=== PATIENT | female | born 1950 | race Caucasian/White ===

== ENCOUNTER 2022-01-09 12:07 | Inpatient (IN) | payer MEDICARE, OTHER ==
[2022-01-09] MEDS ORDERED: IPRATROPIUM-ALBUTEROL 3 ML NEB INHALATION STA (12:31)
[2022-01-09] MEDS ORDERED: DEXAMETHASONE SOD PHOSPHATE 10 MG/ML 1 ML VIAL IV STA (12:57)
[2022-01-09 13:00] LABS: ABG Base Excess 6.1 mmol/L; ABG HCO3 31 mmol/L (21-25); ABG Oxygen Saturation 98.2 % (94-97); ABG PCO2 48 mmHg (35-45); ABG PH 7.41 (7.35-7.45); ABG PO2 88 mmHg (83-108); ABG TCO2 32 mmol/L (19-24); Allen Test Performed? Yes
--- NOTE | 2022-01-09 13:00 | ED ---
General Adult HPI - General Chief complaint: Shortness of Breath Stated complaint: Low BP and O2 Time Seen by Provider: 01/09/22 12:18 Source: patient Mode of arrival: ambulatory - History of Present Illness Initial comments: Dictation was produced using [employer] dictation software. please excuse any grammatical, word or spelling errors. Chief Complaint: 71-year-old female presents to the emergency department for dyspnea History of Present Illness: Is a 71-year-old female she is a regular tobacco user. Patient does not have established care with primary care doctor. She rests emergency department sister for shortness of breath and dyspnea. Patient has not been feeling well for the last 1-2 weeks. She called her sister who then brought her to an urgent care. They found her to be hypoxic and told her to come to the emergency room. Patient states she's been short of breath. She has had a baseline cough is nonproductive of sputum. Denies any chest pain or chest pressure. Patient does complain of swelling to the bilateral lower extremities. The ROS documented in this emergency department record has been reviewed and confirmed by me. Those systems with pertinent positive or negative responses have been documented in the HPI. All other systems are other negative and/or noncontributory. PHYSICAL EXAM: General Impression: Alert and oriented x3, mild respiratory distress HEENT: Normocephalic atraumatic, extra-ocular movements intact, pupils equal and reactive to light bilaterally, mucous membranes moist. Cardiovascular: Heart regular rate and rhythm Chest: Retractions, diffuse lung wheezing Abdomen: abdomen soft, non-tender, non-distended, no organomegaly Musculoskeletal: Pulses present and equal in all extremities, no peripheral edema Motor: no focal deficits noted Neurological: CN II-XII grossly intact, no focal motor or sensory deficits noted Skin: Intact with no visualized rashes Psych: Normal affect and mood ED course: 71-year-old female presents emergency department for dyspnea. Vital signs upon arrival shows heart rate 111, 72% on room air, blood pressure 96/59. Patient given nonrebreather with oxygenation improved into the 90s. Bony care bedside ultrasound does not show any curly B-lines. Suspect that patient's symptoms are secondary to COPD exacerbation. Patient given DuoNeb and steroid treatment. Patient reevaluated bedside at 2:00 and found him in stable medical condition. Laboratory evaluation obtained showing erythrocytosis secondary to COPD. No leukocytosis. Arterial blood gas shows pH of 7.41, pCO2 48 oxygen saturation of 88 on 45% FiO2 with a bicarb of 31. This is after breathing treatment. She is transitioned from nonrebreather to 4 L nasal cannula. Metabolic panel is unremarkable. Cardiac enzymes negative. Chest x-ray shows no acute processes. Patient be admitted for hypoxic respiratory failure and bronchospastic event. EKG interpretation: Ventricular rate 93, sinus rhythm,. Interval 160, care 72, QTc 382. No [place] prolongation, no QTC prolongation, no ST or T-wave changes noted. Overall, this EKG is unremarkable - Related Data Allergies Allergy/AdvReac Type Severity Reaction Status Date / Time No Known Allergies Allergy Verified 01/09/22 12:13 Review of Systems ROS Statement: Those systems with pertinent positive or pertinent negative responses have been documented in the HPI. ROS Other: All systems not noted in ROS Statement are negative. Past Medical History Additional Past Medical History / Comment(s): pt hasn't seen a doctor in year History of Any Multi-Drug Resistant Organisms: None Reported Past Surgical History: No Surgical Hx Reported Past Psychological History: No Psychological Hx Reported Smoking Status: Current every day smoker Past Alcohol Use History: None Reported Past Drug Use History: None Reported, Marijuana Course Vital Signs 01/09/22 01/09/22 01/09/22 12:09 12:35 12:40 Temperature 98.6 F Pulse Rate 111 H 92 95 Respiratory 20 27 H 21 Rate Blood Pressure 96/59 122/76 O2 Sat by Pulse 72 L 99 Oximetry 01/09/22 12:45 Temperature Pulse Rate 95 Respiratory 28 H Rate Blood Pressure O2 Sat by Pulse Oximetry Medical Decision Making - Lab Data Result diagrams: 01/09/22 12:59 01/09/22 12:59 Lab Results 01/09/22 01/09/22 01/09/22 Range/Units 12:53 12:59 12:59 WBC 5.8 (3.8-10.6) k/uL RBC 6.67 H (3.80-5.40) m/uL Hgb 21.1 H* (11.4-16.0) gm/dL Hct 69.6 H* (34.0-46.0) % MCV 104.4 H (80.0-100.0) fL MCH 31.6 (25.0-35.0) pg MCHC 30.3 L (31.0-37.0) g/dL RDW 14.4 (11.5-15.5) % Plt Count 189 (150-450) k/uL MPV 7.5 Hypochromasia Marked Macrocytosis Moderate Sample Site Right Radial ABG pH 7.41 (7.35-7.45) ABG pCO2 48 H (35-45) mmHg ABG pO2 88 (83-108) mmHg ABG HCO3 31 H (21-25) mmol/L ABG Total CO2 32 H (19-24) mmol/L ABG O2 Saturation 98.2 H (94-97) % ABG Base Excess 6.1 mmol/L Jerrod Test Yes FiO2 45 % Sodium 136 L (137-145) mmol/L Potassium 5.4 H (3.5-5.1) mmol/L Chloride 96 L (98-107) mmol/L Carbon Dioxide 29 (22-30) mmol/L Anion Gap 11 mmol/L BUN 23 H (7-17) mg/dL Creatinine 0.99 (0.52-1.04) mg/dL Est GFR (CKD-EPI)AfAm 67 (>60 ml/min/1.73 sqM) Est GFR (CKD-EPI)NonAf 58 (>60 ml/min/1.73 sqM) Glucose 111 H (74-99) mg/dL Plasma Lactic Acid Jan (0.7-2.0) mmol/L Calcium 8.9 (8.4-10.2) mg/dL Magnesium 1.8 (1.6-2.3) mg/dL Total Bilirubin 1.4 H (0.2-1.3) mg/dL AST 30 (14-36) U/L ALT 17 (4-34) U/L Alkaline Phosphatase 98 (38-126) U/L Troponin I (0.000-0.034) ng/mL NT-Pro-B Natriuret Pep pg/mL Total Protein 7.0 (6.3-8.2) g/dL Albumin 4.2 (3.5-5.0) g/dL 01/09/22 01/09/22 01/09/22 Range/Units 12:59 12:59 12:59 WBC (3.8-10.6) k/uL RBC (3.80-5.40) m/uL Hgb (11.4-16.0) gm/dL Hct (34.0-46.0) % MCV (80.0-100.0) fL MCH (25.0-35.0) pg MCHC (31.0-37.0) g/dL RDW (11.5-15.5) % Plt Count (150-450) k/uL MPV Hypochromasia Macrocytosis Sample Site ABG pH (7.35-7.45) ABG pCO2 (35-45) mmHg ABG pO2 (83-108) mmHg ABG HCO3 (21-25) mmol/L ABG Total CO2 (19-24) mmol/L ABG O2 Saturation (94-97) % ABG Base Excess mmol/L Jerrod Test FiO2 % Sodium (137-145) mmol/L Potassium (3.5-5.1) mmol/L Chloride (98-107) mmol/L Carbon Dioxide (22-30) mmol/L Anion Gap mmol/L BUN (7-17) mg/dL Creatinine (0.52-1.04) mg/dL Est GFR (CKD-EPI)AfAm (>60 ml/min/1.73 sqM) Est GFR (CKD-EPI)NonAf (>60 ml/min/1.73 sqM) Glucose (74-99) mg/dL Plasma Lactic Acid Jan 1.4 (0.7-2.0) mmol/L Calcium (8.4-10.2) mg/dL Magnesium (1.6-2.3) mg/dL Total Bilirubin (0.2-1.3) mg/dL AST (14-36) U/L ALT (4-34) U/L Alkaline Phosphatase (38-126) U/L Troponin I <0.012 (0.000-0.034) ng/mL NT-Pro-B Natriuret Pep 5400 pg/mL Total Protein (6.3-8.2) g/dL Albumin (3.5-5.0) g/dL Critical Care Time Critical Care Time: Yes Total Critical Care Time: 33 Disposition Clinical Impression: Hypoxia, COPD (chronic obstructive pulmonary disease) Disposition: ADMITTED IP TO THIS [facility] Condition: Serious Referrals: None,Stated [Primary Care Provider] - 1-2 days Decision Time: 14:01
[2022-01-09 13:11] LABS: Basophils # (A) 0.1 k/uL (0-0.2); Basophils % (A) 1 %; Eosinophils % (A) 1 %; Hypochromasia Marked; Lymphocytes # (A) 1.1 k/uL (1.0-4.8); Lymphocytes % (A) 20 %; MCH 31.6 pg (25.0-35.0); MCHC 30.3 g/dL (31.0-37.0); MCV 104.4 fL (80.0-100.0); Macrocytosis Moderate; Mean Platelet Volume 7.5; Monocytes # (A) 0.6 k/uL (0-1.0); Monocytes % (A) 10 %; Neutrophils # (A) 3.8 k/uL (1.3-7.7); Neutrophils % (A) 66 %; Platelet Count 189 k/uL (150-450); RBC 6.67 m/uL (3.80-5.40); RDW 14.4 % (11.5-15.5); WBC 5.8 k/uL (3.8-10.6)
--- NOTE | 2022-01-09 13:14 | XR ---
EXAMINATION TYPE: XR chest 1V portable DATE OF EXAM: 01/09/2022 COMPARISON: NONE HISTORY: Hypoxia and dyspnea. TECHNIQUE: Single AP portable frontal upright view of the chest is obtained. FINDINGS: There is some chronic parenchymal changes thought present bilaterally with increased inter stitial prominence. Tiny left pleural effusion suspected. Patchy bibasilar opacities favor atelectasi s. The cardiac silhouette size is upper limits of normal. The osseous structures are somewhat demin eralized. IMPRESSION: Tiny left pleural effusion. Background chronic parenchymal changes are felt present. Pat gracy bibasilar atelectasis. No definitive suspicious focal infiltrate.
[2022-01-09 13:26] LABS: Albumin 4.2 g/dL (3.5-5.0); Calcium 8.9 mg/dL (8.4-10.2); Total Bilirubin 1.4 mg/dL (0.2-1.3)
[2022-01-09 13:29] LABS: HGB 21.1 gm/dL (11.4-16.0)
[2022-01-09 13:30] LABS: HCT 69.6 % (34.0-46.0)
[2022-01-09 13:36] LABS: Potassium 5.4 mmol/L (3.5-5.1)
[2022-01-09 13:37] LABS: Magnesium 1.8 mg/dL (1.6-2.3)
[2022-01-09] MEDS ORDERED: NALOXONE 0.4 MG/ML 1 ML VIAL IV PRN (14:01)
[2022-01-09] MEDS ORDERED: ACETAMINOPHEN TAB 325 MG TAB PO PRN (14:01)
[2022-01-09] MEDS ORDERED: AZITHROMYCIN 500 MG in SODIUM CHLORIDE 0.9% 250 ML IVPB STA (14:02)
[2022-01-09] MEDS: SODIUM CHLORIDE 0.9% 1,000 ML IV SCH (14:21)
[2022-01-09 14:36] LABS: Partial Thromboplastin Time 22.2 sec (22.0-30.0); Prothrombin Time 11.3 sec (9.0-12.0)
--- NOTE | 2022-01-09 15:59 | P.CNPUL ---
History of Present Illness Consult date: 01/09/22 Requesting physician: Fausto Veliz Reason for consult: COPD Chief complaint: Shortness of breath cough and wheezing History of present illness: This is a 71-year-old female who is 100 pack year smoker, never seen a integrated logistics support manager in the past, never been on any inhalers or office for her pulmona ry symptoms. Patient has chronic and intermittent episodes of shortness of breath cough and wheezing. In the last 2 months, her shortness of breath and her other pulmonary symptoms have become more pronounced. Patient presented to the ER with classic symptoms of COPD exacerbation mostly cough which is productive with whitish phlegm, no fever no chills, she has no hemoptysis, she has mostly shortness of breath and intermittent wheezing. Patient is not O2 dependent not prednisone dependent and never been seen by a physician except years ago she had a right ankle injury otherwise no other issues. Patient lived in [place] for 15 years, however in the last 2 years, patient moved back to [facility] where she was born and raised. Lives in [facility] facility, patient lives on her own, continues to smoke on the average of one or 2 packs per day. Chest x-ray on admission showed patchy bibasilar atelectasis and no evidence of infiltrate. patient was noted to be hypoxic on her initial presentation, treated with bronchodilators, admitted and this consult was initiated. WBC count is 5.8 hemoglobin 21.1 I d-dimer is 1.47, pO2 is 88 pCO2 48 pH of 7.41 and this is a 45% FiO2. Basic metabolic profile is relatively normal and renal profile is normal Review of Systems Constitutional: Negative HEENT: Negative Cardiac: Negative Pulmonary: Cough wheezing shortness of breath GI: Negative Genitourinary: Negative Musculoskeletal: Chronic right ankle swelling and intermittent pain Psychiatric: History of depression Neurologic: Negative Hematologic: Suspect erythrocytosis secondary to COPD and chronic hypoxic respiratory failure Endocrine: Negative Skin: Negative Past Medical History Additional Past Medical History / Comment(s): pt hasn't seen a doctor in year History of Any Multi-Drug Resistant Organisms: None Reported Past Surgical History: No Surgical Hx Reported Past Psychological History: No Psychological Hx Reported Smoking Status: Current every day smoker Past Alcohol Use History: None Reported Past Drug Use History: None Reported, Marijuana Medications and Allergies Home Medications Medication Instructions Recorded Confirmed Type No Known Home Medications 01/09/22 01/09/22 History Allergies Allergy/AdvReac Type Severity Reaction Status Date / Time No Known Allergies Allergy Verified 01/09/22 14:40 Physical Exam Vitals: Vital Signs Temp Pulse Resp BP Pulse Ox 01/09/22 14:18 106 H 22 121/78 94 L 01/09/22 12:45 95 28 H 01/09/22 12:40 95 21 122/76 99 01/09/22 12:35 92 27 H 01/09/22 12:09 98.6 F 111 H 20 96/59 72 L Intake and Output 01/09/22 01/09/22 01/09/22 06:59 14:59 22:59 Other: Weight 60.781 kg Physical Exam: Revealed 71-year-old female in no distress on 4 L nasal cannula Head: Atraumatic, normocephalic HEENT:[Neck is supple.] [No neck masses.] [No thyromegaly.] [No JVD.] Chest: [Symmetrical chest expansion scattered rhonchi and wheezes Cardiac Exam: [Normal S1 and S2, no S3 gallop, no murmur.] Abdomen: [Soft, nontender, no megaly, no rebound, no guarding, normal bowel sounds.] Extremities: [No clubbing, no edema, no cyanosis.] Neurological Exam: [No focal neurologic deficit.] Alert and oriented 3 Psychiatric: Depressed mood, normal affect, and normal mental status examination. Skin: No rashes Musculoskeletal: No deformities and no limitation in range of motion Results - Laboratory Findings CBC and BMP: 01/09/22 12:59 01/09/22 12:59 ABG ABG pH 7.41 (7.35-7.45) 01/09/22 12:53 ABG pCO2 48 mmHg (35-45) H 01/09/22 12:53 ABG pO2 88 mmHg (83-108) 01/09/22 12:53 ABG O2 Saturation 98.2 % (94-97) H 01/09/22 12:53 PT/INR, D-dimer PT 11.3 sec (9.0-12.0) 01/09/22 13:54 INR 1.0 (<1.2) 01/09/22 13:54 D-Dimer 1.47 mg/L FEU (<0.60) H 01/09/22 13:54 Abnormal lab findings: Abnormal Labs 01/09/22 01/09/22 01/09/22 12:53 12:59 12:59 RBC 6.67 H Hgb 21.1 H* Hct 69.6 H* MCV 104.4 H MCHC 30.3 L D-Dimer ABG pCO2 48 H ABG HCO3 31 H ABG Total CO2 32 H ABG O2 Saturation 98.2 H Sodium 136 L Potassium 5.4 H Chloride 96 L BUN 23 H Glucose 111 H Total Bilirubin 1.4 H 01/09/22 13:54 RBC Hgb Hct MCV MCHC D-Dimer 1.47 H ABG pCO2 ABG HCO3 ABG Total CO2 ABG O2 Saturation Sodium Potassium Chloride BUN Glucose Total Bilirubin - Diagnostic Findings Chest x-ray: image reviewed (As noted in HPI) Assessment and Plan Assessment: Impression: Acute hypoxic respiratory failure secondary to acute exacerbation of COPD Suspect polycythemia vera secondary to chronic hypoxic respiratory failure and underlying COPD\ Acute tracheobronchitis Tobacco dependence syndrome Chronic osteoarthritis of right ankle secondary to trauma/fall. Recommendation: Admit patient to regular medical floor Started on bronchodilators. Titrate oxygen accordingly patient may even require to go home on oxygen Start methylprednisolone GI and DVT prophylaxis Counseled regarding smoking cessation Antibiotics for tracheobronchitis/doxycycline Will continue to follow Time with Patient: Greater than 30
[2022-01-09] MEDS: methylPREDNISolone SOD SUCCI 40 MG/ML 1 ML VIAL IV SCH ×2 (18:10→23:57)
[2022-01-09] MEDS: SYMBICORT 160-4.5 MCG INHALER INHALATION SCH (20:00)
[2022-01-09] MEDS ORDERED: methylPREDNISolone SOD SUCCI 40 MG/ML 1 ML VIAL IV SCH (21:00)
[2022-01-09] MEDS: DOXYCYCLINE 100 MG CAP PO SCH (22:24)
[2022-01-09] MEDS: MELATONIN 3 MG TABLET PO SCH (22:43)
[2022-01-10] MEDS: methylPREDNISolone SOD SUCCI 40 MG/ML 1 ML VIAL IV SCH ×4 (06:16→23:16)
[2022-01-10] MEDS: SYMBICORT 160-4.5 MCG INHALER INHALATION SCH ×2 (08:10→19:36)
--- NOTE | 2022-01-10 08:10 | P.HPIM ---
History of Present Illness H&P Date: 01/09/22 Chief Complaint: Shortness of breath 71-year-old female she is a regular tobacco user. Patient does not have established care with primary care doctor. She rests emergency department sister for shortness of breath and dyspnea. Patient has not been feeling well for the last 1-2 weeks. She called her sister who then brought her to an urgent care. They found her to be hypoxic and told her to come to the emergency room. Patient states she's been short of breath. She has had a baseline cough is nonproductive of sputum. Denies any chest pain or chest pressure. Patient does complain of swelling to the bilateral lower extremities. Patient lived in [place] for 15 years, however in the last 2 years, patient moved back to [place] where she was born and raised. Lives in [facility], patient lives on her own, continues to smoke on the average of one or 2 packs per day. Chest x-ray on admission showed patchy bibasilar atelectasis and no evidence of infiltrate. patient was noted to be hypoxic on her initial presentation, treated with bronchodilators, admitted and this consult was initiated. WBC count is 5.8 hemoglobin 21.1; Chemical profile reveals sodium 136, potassium 5.4, BUN/creatinine of 23/0.99 and blood glucose of 111; d-dimer is 1.47, pO2 is 88 pCO2 48 pH of 7.41 and this is a 45% FiO2. Review of Systems REVIEW OF SYSTEMS: CONSTITUTIONAL: No fever, no malaise, no fatigue. HEENT: No recent visual problems or hearing problems. Denied any sore throat. CARDIOVASCULAR: No chest pain, orthopnea, PND, no palpitations, no syncope. PULMONARY: No shortness of breath, no cough, no hemoptysis. GASTROINTESTINAL: No diarrhea, no nausea, no vomiting, no abdominal pain. NEUROLOGICAL: No headaches, no weakness, no numbness. HEMATOLOGICAL: Denies any bleeding or petechiae. GENITOURINARY: Denies any burning micturition, frequency, or urgency. MUSCULOSKELETAL/RHEUMATOLOGICAL: Denies any joint pain, swelling, or any muscle pain. ENDOCRINE: Denies any polyuria or polydipsia. The rest of the 14-point review of systems is negative. Past Medical History Additional Past Medical History / Comment(s): pt hasn't seen a doctor in year History of Any Multi-Drug Resistant Organisms: None Reported Past Surgical History: No Surgical Hx Reported Past Psychological History: No Psychological Hx Reported Smoking Status: Current every day smoker Past Alcohol Use History: None Reported Past Drug Use History: None Reported, Marijuana Medications and Allergies Home Medications Medication Instructions Recorded Confirmed Type No Known Home Medications 01/09/22 01/09/22 History Allergies Allergy/AdvReac Type Severity Reaction Status Date / Time No Known Allergies Allergy Verified 01/09/22 14:40 Physical Exam Vitals: Vital Signs Temp Pulse Resp BP Pulse Ox 01/09/22 14:18 106 H 22 121/78 94 L 01/09/22 12:45 95 28 H 01/09/22 12:40 95 21 122/76 99 01/09/22 12:35 92 27 H 01/09/22 12:09 98.6 F 111 H 20 96/59 72 L Intake and Output 01/09/22 01/09/22 01/09/22 06:59 14:59 22:59 Other: Weight 60.781 kg Head: Atraumatic, normocephalic HEENT:[Neck is supple.] [No neck masses.] [No thyromegaly.] [No JVD.] Chest: [Symmetrical chest expansion scattered rhonchi and wheezes Cardiac Exam: [Normal S1 and S2, no S3 gallop, no murmur.] Abdomen: [Soft, nontender, no megaly, no rebound, no guarding, normal bowel sounds.] Extremities: [No clubbing, no edema, no cyanosis.] Neurological Exam: [No focal neurologic deficit.] Alert and oriented 3 Psychiatric: Depressed mood, normal affect, and normal mental status examination. Skin: No rashes Musculoskeletal: No deformities and no limitation in range of motion Results CBC & Chem 7: 01/09/22 12:59 01/09/22 12:59 Labs: Abnormal Lab Results - Last 24 Hours (Table) 01/09/22 01/09/22 01/09/22 Range/Units 12:53 12:59 12:59 RBC 6.67 H (3.80-5.40) m/uL Hgb 21.1 H* (11.4-16.0) gm/dL Hct 69.6 H* (34.0-46.0) % MCV 104.4 H (80.0-100.0) fL MCHC 30.3 L (31.0-37.0) g/dL D-Dimer (<0.60) mg/L FEU ABG pCO2 48 H (35-45) mmHg ABG HCO3 31 H (21-25) mmol/L ABG Total CO2 32 H (19-24) mmol/L ABG O2 Saturation 98.2 H (94-97) % Sodium 136 L (137-145) mmol/L Potassium 5.4 H (3.5-5.1) mmol/L Chloride 96 L (98-107) mmol/L BUN 23 H (7-17) mg/dL Glucose 111 H (74-99) mg/dL Total Bilirubin 1.4 H (0.2-1.3) mg/dL 01/09/22 Range/Units 13:54 RBC (3.80-5.40) m/uL Hgb (11.4-16.0) gm/dL Hct (34.0-46.0) % MCV (80.0-100.0) fL MCHC (31.0-37.0) g/dL D-Dimer 1.47 H (<0.60) mg/L FEU ABG pCO2 (35-45) mmHg ABG HCO3 (21-25) mmol/L ABG Total CO2 (19-24) mmol/L ABG O2 Saturation (94-97) % Sodium (137-145) mmol/L Potassium (3.5-5.1) mmol/L Chloride (98-107) mmol/L BUN (7-17) mg/dL Glucose (74-99) mg/dL Total Bilirubin (0.2-1.3) mg/dL Assessment and Plan Assessment: 1. Acute hypoxic respiratory failure - Patient is currently on O2 at 4 L per nasal cannula; we will titrate/wean to keep O2 saturation above 92% - Need for home O2 will be determined once stable and at time of discharge 2. Acute exacerbation COPD; patient is placed on Solu-Medrol 40 mg IV every 6 hours; bronchodilator nebulizer treatments 4 times a day and when necessary - Patient has been placed on Symbicort inhaler 1604.5 MCG 2 puffs twice a day 3. Acute tracheobronchitis; doxycycline 100 mg PO every 12 hours; monitor CBC, CRP and pro-calcitonin 4. Polycythemia vera; likely related to COPD/chronic hypoxic respiratory failure 5. Chronic tobacco use; counseling done on need for smoking cessation; patient doesn't seem to be too motivated 6. Osteoarthritis; likely acute exacerbation right ankle DVT prophylaxis; SCDs/ subcu Lovenox CODE STATUS; full code
[2022-01-10] MEDS: ENOXAPARIN 40 MG/0.4 ML SYRINGE SQ SCH (08:23)
[2022-01-10] MEDS: DOXYCYCLINE 100 MG CAP PO SCH ×2 (08:23→19:57)
[2022-01-10] MEDS: FAMOTIDINE 20 MG TAB PO SCH (08:23)
[2022-01-10] MEDS ORDERED: AZITHROMYCIN 250 MG TAB PO SCH (09:00)
[2022-01-10] MEDS ORDERED: IPRATROPIUM-ALBUTEROL 3 ML NEB INHALATION PRN (09:12)
[2022-01-10 10:00] LABS: Hypochromasia Marked; MCH 32.8 pg (25.0-35.0); Macrocytosis Moderate; Mean Platelet Volume 7.6; Platelet Count 172 k/uL (150-450); RBC 5.95 m/uL (3.80-5.40); RDW 14.8 % (11.5-15.5); WBC 4.9 k/uL (3.8-10.6)
[2022-01-10 10:02] LABS: HCT 63.1 % (34.0-46.0); HGB 19.6 gm/dL (11.4-16.0)
--- NOTE | 2022-01-10 10:22 | P.PN ---
Subjective Progress Note Date: 01/10/22 Principal diagnosis: Shortness of breath This is a 71-year-old female who is 100 pack year smoker, never seen a digital solution architect in the past, never been on any inhalers or office for her pulmonary symptoms. Patient has chronic and intermittent episodes of shortness of breath cough and wheezing. In the last 2 months, her shortness of breath and her other pulmonary symptoms have become more pronounced. Patient presented to the ER with classic symptoms of COPD exacerbation mostly cough which is productive with whitish phlegm, no fever no chills, she has no hemoptysis, she has mostly shortness of breath and intermittent wheezing. Patient is not O2 dependent not prednisone dependent and never been seen by a physician except years ago she had a right ankle injury otherwise no other issues. Patient lived in [place] for 15 years, however in the last 2 years, patient moved back to [place] where she was born and raised. Lives in alf facility, patient lives on her own, continues to smoke on the average of one or 2 packs per day. Chest x-ray on admission showed patchy bibasilar atelectasis and no evidence of infiltrate. patient was noted to be hypoxic on her initial presentation, treated with bronchodilators, admitted and this consult was initiated. WBC co unt is 5.8 hemoglobin 21.1 I d-dimer is 1.47, pO2 is 88 pCO2 48 pH of 7.41 and this is a 45% FiO2. Basic metabolic profile is relatively normal and renal profile is normal On 01/10/2022 patient seen in follow-up on medical surgical floor. She is improving, feeling better, breathing easier, still remains on 5 L of oxygen her pulse ox is 92-93%, FiO2 has been cut back to 3 L and patient's pulse ox remains at 94, without increased shortness of breath. She's been afebrile, vital signs have been stable. His labs have been reviewed, white blood cell count is 4.9, hemoglobin is 19.6, labs are still pending at this time, proBNP was 5400, troponin was negative at less than 0.012, d-dimer was 1.47. Patient remains on IV steroids, doxycycline for empiric antibiotic coverage, and nebulized bronc hodilators, clinically she is improving. Objective - Vital Signs Vital signs: Vital Signs Temp 98.4 F 01/10/22 07:23 Pulse 87 01/10/22 08:26 Resp 18 01/10/22 08:26 BP 101/61 01/10/22 07:23 Pulse Ox 93 L 01/10/22 07:23 FiO2 Intake & Output 01/09/22 01/10/22 01/10/22 18:59 06:59 18:59 Intake Total 540 Balance 540 Weight 60.781 kg Intake: Oral 540 Other: Voiding Method Toilet Toilet # Voids 2 - Exam GENERAL EXAM: Alert, very pleasant, 71-year-old white female, resting comfortably in bed, general farm hand oxygen she sat 92-93% comfortable in no apparent distress. HEAD: Normocephalic/atraumatic. EYES: Normal reaction of pupils, equal size. Conjunctiva pink, sclera white. NOSE: Clear with pink turbinates. THROAT: No erythema or exudates. NECK: No masses, no JVD, no thyroid enlargement, no adenopathy. CHEST: No chest wall deformity. Symmetrical expansion. LUNGS: Equal air entry with no crackles, wheeze, rhonchi or dullness. CVS: Regular rate and rhythm, normal S1 and S2, no gallops, no murmurs, no rubs ABDOMEN: Soft, nontender. No hepatosplenomegaly, normal bowel sounds, no guarding or rigidity. EXTREMITIES: No clubbing, no edema, no cyanosis, 2+ pulses and upper and lower extremities. MUSCULOSKELETAL: Muscle strength and tone normal. SPINE: No scoliosis or deformity SKIN: No rashes CENTRAL NERVOUS SYSTEM: Alert and oriented -3. No focal deficits, tone is normal in all 4 extremities. PSYCHIATRIC: Alert and oriented -3. Appropriate affect. Intact judgment and insight. - Labs CBC & Chem 7: 01/10/22 09:24 01/09/22 12:59 Labs: Abnormal Lab Results - Last 24 Hours (Table) 01/09/22 01/09/22 01/09/22 Range/Units 12:53 12:59 12:59 RBC 6.67 H (3.80-5.40) m/uL Hgb 21.1 H* (11.4-16.0) gm/dL Hct 69.6 H* (34.0-46.0) % MCV 104.4 H (80.0-100.0) fL MCHC 30.3 L (31.0-37.0) g/dL D-Dimer (<0.60) mg/L FEU ABG pCO2 48 H (35-45) mmHg ABG HCO3 31 H (21-25) mmol/L ABG Total CO2 32 H (19-24) mmol/L ABG O2 Saturation 98.2 H (94-97) % Sodium 136 L (137-145) mmol/L Potassium 5.4 H (3.5-5.1) mmol/L Chloride 96 L (98-107) mmol/L BUN 23 H (7-17) mg/dL Glucose 111 H (74-99) mg/dL Total Bilirubin 1.4 H (0.2-1.3) mg/dL 01/09/22 01/10/22 Range/Units 13:54 09:24 RBC 5.95 H (3.80-5.40) m/uL Hgb 19.6 H* (11.4-16.0) gm/dL Hct 63.1 H* (34.0-46.0) % MCV 106.0 H (80.0-100.0) fL MCHC (31.0-37.0) g/dL D-Dimer 1.47 H (<0.60) mg/L FEU ABG pCO2 (35-45) mmHg ABG HCO3 (21-25) mmol/L ABG Total CO2 (19-24) mmol/L ABG O2 Saturation (94-97) % Sodium (137-145) mmol/L Potassium (3.5-5.1) mmol/L Chloride (98-107) mmol/L BUN (7-17) mg/dL Glucose (74-99) mg/dL Total Bilirubin (0.2-1.3) mg/dL Assessment and Plan Plan: Assessment: #1. Acute hypoxic respiratory failure secondary to acute exacerbation of COPD #2. Suspect polycythemia vera secondary to chronic hypoxic respiratory failure and underlying COPD with acute tracheobronchitis #3. Tobacco dependence syndrome #4. Chronic osteoarthritis of right ankle secondary to trauma and fall Plan: FIO2 to has been cut back to 3 L We'll continue to wean FiO2 We will obtain home oxygen assessment Clinically patient is improving We'll continue with inpatient treatment for another 24 hours Continue IV steroids, antibiotics and nebulized bronchodilators Consider discharge home in the next 24 hours Possibly with home oxygen if she qualifies Outpatient follow-up with Dr. Toussaint in the office I have personally seen and examined the patient, performed the documentation and the assessment and plan as written. Number of minutes spent on the visit: [10] Time with Patient: Less than 30
[2022-01-10 10:42] LABS: African American GFR (CKD) >90 (>60 ml/min/1.73 sqM); Anion Gap 8 mmol/L; Blood Urea Nitrogen 20 mg/dL (7-17); Calcium 8.1 mg/dL (8.4-10.2); Carbon Dioxide 29 mmol/L (22-30); Chloride 98 mmol/L (98-107); Glucose 267 mg/dL (74-99); Non-African American GFR(CKD) 78 (>60 ml/min/1.73 sqM); Potassium 4.9 mmol/L (3.5-5.1); Sodium 135 mmol/L (137-145)
[2022-01-10 10:56] LABS: Lymphocytes # (M) 0.25 k/uL (1.0-4.8); Neutrophils # (M) 4.46 k/uL (1.3-7.7); Neutrophils % (M) 91 %; Nucleated Red Blood Cells 0 /100 WBC (0-0); Total Cells Counted 100
[2022-01-10] MEDS: IPRATROPIUM-ALBUTEROL 3 ML NEB INHALATION SCH ×3 (11:01→19:36)
--- NOTE | 2022-01-10 14:34 | P.CN ---
Psychiatric Consult - . Consult date: 01/10/22 Consult:: Psychiatric consult: Following is an excerpt from the assessment done by the PCP: 71-year-old female she is a regular tobacco user. Patient does not have established care with primary care doctor. She rests emergency department sis ter for shortness of breath and dyspnea. Patient has not been feeling well for the last 1-2 weeks. She called her sister who then brought her to an urgent care. They found her to be hypoxic and told her to come to the emergency room. Patient states she's been short of breath. She has had a baseline cough is nonproductive of sputum. Denies any chest pain or chest pressure. Patient does complain of swelling to the bilateral lower extremities. Patient lived in [place] for 15 years, however in the last 2 years, patient moved back to [place] where she was born and raised. Lives in detention facility, patient lives on her own, continues to smoke on the average of one or 2 packs per day. Chest x-ray on admission showed patchy bibasilar atelectasis and no evidence of infiltrate. patient was noted to be hypoxic on her initial presentation, treated with bronchodilators, admitted and this consult was initiated. WBC count is 5.8 hemoglobin 21.1; Chemical profile reveals sodium 136, potassium 5.4, BUN/creatinine of 23/0.99 and blood glucose of 111; d-dimer is 1.47, pO2 is 88 pCO2 48 pH of 7.41 and this is a 45% FiO2. A psychiatric consultation was requested after patient was noted in the ER to have made some negative comments When interviewed patient was quite friendly and cooperative and fairly open Patient reports that she has been feeling depressed for quite some time and that is always been somewhat of an introverted person She states that she does not have much of an eating trusting interacting with family and friends except for her sister She states that her escape has been smoking cigarettes which she enjoys immensely She also realizes that she will not be able to do that anymore and that she wanted to find other interests and hobbies However on further exploration patient does admit that she does enjoy reading TV and sometimes going out with her sister She states that 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 She stated that she also took care of her mother and her brother also passed way from COPD She had made a comment about not wanting to wake up but denies that she has any suicidal ideations or plans and admits to having had passive thoughts of wanting to just go away She however now admits that she will do everything she can to work on her abstinence as well as is also open to getting some treatment for depression She denies any ongoing crying spells or any feelings of helplessness or hopelessness although she says that she sometimes feels dejected Mental status examination: Reveals a elderly female who looks her age and currently appears in no acute physical distress Patient is pleasant and cooperative Speech is clear coherent and relevant Thought processes are goal-directed sequential and logical Patient denies any suicidal or homicidal ideations or plans Patient's formal and operational judgment appears to be fair There is no evidence of any overt psychosis Thinking is abstract Cognitively patient appears to be intact Patient's formal and operational judgment appears to be fair Patient's insight appears to be fair Problem-solving skills at this time appears to be fair Diagnostic impression: Adjustment disorder with mixed emotional features Mood disorder mild Nicotine use disorder Plan: Patient is a good candidate for supportive counseling as well as referral to a nicotine abstinence program and trial Would recommend also starting the patient on Zoloft starting at 25 mg daily to start with and to be titrated to response. Patient is encouraged to also follow-up with a psychiatrist and to also see a therapist for supportive counseling and to improve her coping skills Other interactions would also include using Nicorette gum Chantix etc. if patient continues to have problems with abstinence. Thank you" kind referral please contact further questions Jarrod Michel M.D.
[2022-01-10] MEDS: SODIUM CHLORIDE 0.9% 1,000 ML IV SCH (19:21)
[2022-01-10] MEDS: MELATONIN 3 MG TABLET PO SCH (19:57)
--- NOTE | 2022-01-10 20:43 | P.PN ---
Subjective Progress Note Date: 01/10/22 Principal diagnosis: Acute hypoxic respiratory failure Acute exacerbation COPD Severe acute tracheobronchitis Polycythemia vera 71-year-old female she is a regular tobacco user. Patient does not have established care with primary care doctor. She rests emergency department sister for shortness of breath and dyspnea. Patient has not been feeling well for the last 1-2 weeks. She called her sister who then brought her to an urgent care. They found her to be hypoxic and told her to come to the emergency room. Patient states she's been short of breath. She has had a baseline cough is nonproductive of sputum. Denies any chest pain or chest pressure. Patient does complain of swelling to the bilateral lower extremities. Patient lived in [place] for 15 years, however in the last 2 years, patient moved back to [place] where she was born and raised. Lives in long-term facility, patient lives on her own, continues to smoke on the average of one or 2 packs per day. Chest x-ray on admission showed patchy bibasilar atelectasis and no evidence of infiltrate. patient was noted to be hypoxic on her initial presentation, treated with bronchodilators, admitted and this consult was initiated. WBC count is 5.8 hemoglobin 21.1; Chemical profile reveals sodium 136, potassium 5.4, BUN/creatinine of 23/0.99 and blood glucose of 111; d-dimer is 1.47, pO2 is 88 pCO2 48 pH of 7.41 and this is a 45% FiO2. Objective - Vital Signs Vital signs: Vital Signs Temp 98.4 F 01/10/22 07:23 Pulse 92 01/10/22 11:14 Resp 18 01/10/22 08:26 BP 101/61 01/10/22 07:23 Pulse Ox 93 L 01/10/22 07:23 FiO2 Intake & Output 01/09/22 01/10/22 01/10/22 18:59 06:59 18:59 Intake Total 540 Balance 540 Weight 60.781 kg Intake: Oral 540 Other: Voiding Method Toilet Toilet # Voids 2 - Exam Head: Atraumatic, normocephalic HEENT:[Neck is supple.] [No neck masses.] [No thyromegaly.] [No JVD.] Chest: [Symmetrical chest expansion scattered rhonchi and wheezes Cardiac Exam: [Normal S1 and S2, no S3 gallop, no murmur.] Abdomen: [Soft, nontender, no megaly, no rebound, no guarding, normal bowel sounds.] Extremities: [No clubbing, no edema, no cyanosis.] Neurological Exam: [No focal neurologic deficit.] Alert and oriented 3 Psychiatric: Depressed mood, normal affect, and normal mental status examination. Skin: No rashes Musculoskeletal: No deformities and no limitation in range of motion - Labs CBC & Chem 7: 01/10/22 09:24 01/10/22 09:24 Labs: Abnormal Lab Results - Last 24 Hours (Table) 01/09/22 01/09/22 01/09/22 Range/Units 12:59 12:59 13:54 RBC 6.67 H (3.80-5.40) m/uL Hgb 21.1 H* (11.4-16.0) gm/dL Hct 69.6 H* (34.0-46.0) % MCV 104.4 H (80.0-100.0) fL MCHC 30.3 L (31.0-37.0) g/dL Lymphocytes # (Manual) (1.0-4.8) k/uL D-Dimer 1.47 H (<0.60) mg/L FEU Sodium 136 L (137-145) mmol/L Potassium 5.4 H (3.5-5.1) mmol/L Chloride 96 L (98-107) mmol/L BUN 23 H (7-17) mg/dL Glucose 111 H (74-99) mg/dL Calcium (8.4-10.2) mg/dL Total Bilirubin 1.4 H (0.2-1.3) mg/dL 01/10/22 01/10/22 Range/Units 09:24 09:24 RBC 5.95 H (3.80-5.40) m/uL Hgb 19.6 H* (11.4-16.0) gm/dL Hct 63.1 H* (34.0-46.0) % MCV 106.0 H (80.0-100.0) fL MCHC (31.0-37.0) g/dL Lymphocytes # (Manual) 0.25 L (1.0-4.8) k/uL D-Dimer (<0.60) mg/L FEU Sodium 135 L (137-145) mmol/L Potassium (3.5-5.1) mmol/L Chloride (98-107) mmol/L BUN 20 H (7-17) mg/dL Glucose 267 H (74-99) mg/dL Calcium 8.1 L (8.4-10.2) mg/dL Total Bilirubin (0.2-1.3) mg/dL Assessment and Plan Assessment: 1. Acute hypoxic respiratory failure - Patient is currently on O2 at 4 L per nasal cannula; we will titrate/wean to keep O2 saturation above 92% - Need for home O2 will be determined once stable and at time of discharge 2. Acute exacerbation COPD; patient is placed on Solu-Medrol 40 mg IV every 6 hours; bronchodilator nebulizer treatments 4 times a day and when necessary - Patient has been placed on Symbicort inhaler 1604.5 MCG 2 puffs twice a day 3. Acute tracheobronchitis; doxycycline 100 mg PO every 12 hours; monitor CBC, CRP and pro-calcitonin 4. Polycythemia vera; likely related to COPD/chronic hypoxic respiratory failure 5. Chronic tobacco use; counseling done on need for smoking cessation; patient doesn't seem to be too motivated 6. Osteoarthritis; likely acute exacerbation right ankle DVT prophylaxis; SCDs/ subcu Lovenox CODE STATUS; full code
[2022-01-11] MEDS: methylPREDNISolone SOD SUCCI 40 MG/ML 1 ML VIAL IV SCH ×4 (05:46→23:01)
[2022-01-11] MEDS: DOXYCYCLINE 100 MG CAP PO SCH ×2 (07:14→22:05)
[2022-01-11] MEDS: ENOXAPARIN 40 MG/0.4 ML SYRINGE SQ SCH (07:14)
[2022-01-11] MEDS: FAMOTIDINE 20 MG TAB PO SCH (07:15)
[2022-01-11] MEDS: CITALOPRAM HYDROBROMIDE 10 MG TAB PO SCH (07:15)
[2022-01-11] MEDS: SYMBICORT 160-4.5 MCG INHALER INHALATION SCH ×2 (08:27→19:37)
[2022-01-11] MEDS: IPRATROPIUM-ALBUTEROL 3 ML NEB INHALATION SCH ×4 (08:27→19:36)
[2022-01-11 10:08] LABS: Basophils # (A) 0.01 X 10*3/uL (0.00-0.10); Basophils % (A) 0.1 %; Eosinophils # (A) 0 X 10*3/uL (0.04-0.35); Eosinophils % (A) 0 %; Immature Grans, Automated 0.9 %; Lymphocytes # (A) 0.57 X 10*3/uL (0.90-5.00); Lymphocytes % (A) 5.6 %; Monocytes # (A) 0.33 X 10*3/uL (0.20-1.00); Monocytes % (A) 3.3 %; NRBC Per 100 WBC 0 /100 WBCS (0.0-0.0); Neutrophils % (A) 90.1 %
[2022-01-11 10:12] LABS: HCT 61.5 % (37.2-46.3); HGB 19.8 g/dL (12.0-15.0); MCH 32.1 pg (27.0-32.0); MCHC 32.2 g/dL (32.0-37.0); MCV 99.7 fL (80.0-97.0); Mean Platelet Volume 9.8 fL (9.5-12.2); Platelet Count 178 X 10*3/uL (140-440); RBC 6.17 X 10*6/uL (4.10-5.20); RDW 14.9 % (11.5-14.5)
[2022-01-11 10:24] LABS: African American GFR (CKD) 85.7 (60.0-200.0); Anion Gap 12.8 mmol/L (10.00-18.00); BUN/Creat Ratio 24.41 Ratio (12.00-20.00); Blood Urea Nitrogen 19.7 mg/dL (9.0-27.0); Calcium 8.9 mg/dL (8.7-10.3); Carbon Dioxide 26.2 mmol/L (20.0-27.5); Non-African American GFR(CKD) 73.9 (60.0-200.0); Potassium 5.3 mmol/L (3.5-5.5)
--- NOTE | 2022-01-11 11:14 | P.PN ---
Subjective Progress Note Date: 01/11/22 Principal diagnosis: Shortness of breath This is a 71-year-old female who is 100 pack year smoker, never seen a laundry equipment operator in the past, never been on any inhalers or office for her pulmonary symptoms. Patient has chronic and intermittent episodes of shortness of breath cough and wheezing. In the last 2 months, her shortness of breath and her other pulmonary symptoms have become more pronounced. Patient presented to the ER with classic symptoms of COPD exacerbation mostly cough which is productive with whitish phlegm, no fever no chills, she has no hemoptysis, she has mostly shortness of breath and intermittent wheezing. Patient is not O2 dependent not prednisone dependent and never been seen by a physician except years ago she had a right ankle injury otherwise no other issues. Patient lived in [place] for 15 years, however in the last 2 years, patient moved back to [place] where she was born and raised. Lives in [facility] facility, patient lives on her own, continues to smoke on the average of one or 2 packs per day. Chest x-ray on admission showed patchy bibasilar atelectasis and no evidence of infiltrate. patient was noted to be hypoxic on her initial presentation, treated with bronchodilators, admitted and this consult was initiated. WBC co unt is 5.8 hemoglobin 21.1 I d-dimer is 1.47, pO2 is 88 pCO2 48 pH of 7.41 and this is a 45% FiO2. Basic metabolic profile is relatively normal and renal profile is normal On 01/10/2022 patient seen in follow-up on medical surgical floor. She is improving, feeling better, breathing easier, still remains on 5 L of oxygen her pulse ox is 92-93%, FiO2 has been cut back to 3 L and patient's pulse ox remains at 94, without increased shortness of breath. She's been afebrile, vital signs have been stable. His labs have been reviewed, white blood cell count is 4.9, hemoglobin is 19.6, labs are still pending at this time, proBNP was 5400, troponin was negative at less than 0.012, d-dimer was 1.47. Patient remains on IV steroids, doxycycline for empiric antibiotic coverage, and nebulized bronc hodilators, clinically she is improving. On February 11, 2022 patient is seen in follow-up on medical surgical floor. She continues to improve, breathing much easier. Less bronchospastic. She sta neymar overnight she had a hard time sleeping, she is also reporting problems with constipation. Vital signs have been stable, FiO2 down to 4 L, she sat 90-93%. Patient does qualify for home oxygen as she was desaturating to 70s with ambulation on room air according to the nursing staff. She remains on empiric antibiotics in the form of doxycycline, Symbicort, DuoNeb and IV steroids. Objective - Vital Signs Vital signs: Vital Signs Temp 98.3 F 01/11/22 07:59 Pulse 100 01/11/22 08:39 Resp 16 01/11/22 07:59 BP 130/57 01/11/22 07:59 Pulse Ox 93 L 01/11/22 08:29 FiO2 Intake & Output 01/10/22 01/11/22 01/11/22 18:59 06:59 18:59 Intake Total 240 550 Balance 240 550 Intake: Intake, IV Titration 240 Amount Sodium Chloride 0.9% 1, 240 000 ml @ 20 mls/hr IV . Q24H [facility] Rx#:[id number] Oral 550 Other: Voiding Method Toilet Toilet Toilet # Voids 2 - Exam GENERAL EXAM: Alert, very pleasant, 71-year-old white female, resting comfortably in bed, on 4l/min oxygen she sats 92-93% comfortable in no apparent distress. HEAD: Normocephalic/atraumatic. EYES: Normal reaction of pupils, equal size. Conjunctiva pink, sclera white. NOSE: Clear with pink turbinates. THROAT: No erythema or exudates. NECK: No masses, no JVD, no thyroid enlargement, no adenopathy. CHEST: No chest wall deformity. Symmetrical expansion. LUNGS: Equal air entry with no crackles, wheeze, rhonchi or dullness. CVS: Regular rate and rhythm, normal S1 and S2, no gallops, no murmurs, no rubs ABDOMEN: Soft, nontender. No hepatosplenomegaly, normal bowel sounds, no guarding or rigidity. EXTREMITIES: No clubbing, no edema, no cyanosis, 2+ pulses and upper and lower extremities. MUSCULOSKELETAL: Muscle strength and tone normal. SPINE: No scoliosis or deformity SKIN: No rashes CENTRAL NERVOUS SYSTEM: Alert and oriented -3. No focal deficits, tone is normal in all 4 extremities. PSYCHIATRIC: Alert and oriented -3. Appropriate affect. Intact judgment and insight. - Labs CBC & Chem 7: 01/11/22 06:16 01/11/22 06:16 Labs: Abnormal Lab Results - Last 24 Hours (Table) 01/11/22 01/11/22 Range/Units 06:16 06:16 WBC 10.10 H (4.50-10.00) X 10*3/uL RBC 6.17 H (4.10-5.20) X 10*6/uL Hgb 19.8 H* (12.0-15.0) g/dL Hct 61.5 H* (37.2-46.3) % MCV 99.7 H (80.0-97.0) fL MCH 32.1 H (27.0-32.0) pg RDW 14.9 H (11.5-14.5) % Immature Gran # 0.09 H (0.00-0.04) X 10*3/uL Neutrophils # 9.10 H (1.80-7.70) X 10*3/uL Lymphocytes # 0.57 L (0.90-5.00) X 10*3/uL Eosinophils # 0 L (0.04-0.35) X 10*3/uL BUN/Creatinine Ratio 24.41 H (12.00-20.00) Ratio Glucose 148 H (70-110) mg/dL Assessment and Plan Plan: Assessment: #1. Acute hypoxic respiratory failure secondary to acute exacerbation of COPD #2. Suspect polycythemia vera secondary to chronic hypoxic respiratory failure and underlying COPD with acute tracheobronchitis #3. Tobacco dependence syndrome #4. Chronic osteoarthritis of right ankle secondary to trauma and fall Plan: Clinically patient continues to improve She did qualify for home oxygen, she will be going home on 3-4 L per nasal cannula supplemental oxygen She will benefit from nebulized bronchodilators with DuoNeb 4 times a day and every 2 hours when necessary Wixela 250-50 one puff twice a day for maintenance inhaler Prednisone taper starting at 40 mg daily over 16 days Outpatient follow-up with Dr. Toussaint in the office I have personally seen and examined the patient, performed the documentation and the assessment and plan as written. Number of minutes spent on the visit: [10] Time with Patient: Less than 30
[2022-01-11] MEDS: polyethylene glycoL 3350 17 GM POWD.PACK PO SCH (13:27)
--- NOTE | 2022-01-11 17:35 | P.PN ---
Subjective Progress Note Date: 01/11/22 Principal diagnosis: Acute hypoxic respiratory failure Acute exacerbation COPD Severe acute tracheobronchitis Polycythemia vera 71-year-old female she is a regular tobacco user. Patient does not have established care with primary care doctor. She rests emergency department sister for shortness of breath and dyspnea. Patient has not been feeling well for the last 1-2 weeks. She called her sister who then brought her to an urgent care. They found her to be hypoxic and told her to come to the emergency room. Patient states she's been short of breath. She has had a baseline cough is nonproductive of sputum. Denies any chest pain or chest pressure. Patient does complain of swelling to the bilateral lower extremities. Patient lived in [place] for 15 years, however in the last 2 years, patient moved back to [place] where she was born and raised. Lives in snf facility, patient lives on her own, continues to smoke on the average of one or 2 packs per day. Chest x-ray on admission showed patchy bibasilar atelectasis and no evidence of infiltrate. patient was noted to be hypoxic on her initial presentation, treated with bronchodilators, admitted and this consult was initiated. WBC count is 5.8 hemoglobin 21.1; Chemical profile reveals sodium 136, potassium 5.4, BUN/creatinine of 23/0.99 and blood glucose of 111; d-dimer is 1.47, pO2 is 88 pCO2 48 pH of 7.41 and this is a 45% FiO2. 01/11/2022 patient is seen in follow-up on medical surgical floor. She continues to improve, breathing much easier. Less bronchospastic. She states overnight she had a hard time sleeping, she is also reporting problems with constipation. Vital signs have been stable, FiO2 down to 4 L, she sat 90-93%. Patient does qualify for home oxygen as she was desaturating to 70s with ambulation on room air according to the nursing staff. She remains on empiric antibiotics in the form of doxycycline, Symbicort, DuoNeb and IV steroids. Pulmonary recommending to discharge patient home on 3-4 L of O2 per nasal santi eliazar along with nebulized bronchodilators with DuoNeb 4 times a day and every 12 hours when necessary; patient is recommended Wixela [id number], 1 puff twice a day for maintenance inhaler and recommended to taper prednisone starting at 40 mg; patient to follow-up with Dr. Toussaint in his office Case management is consulted to make arrangements for home O2 and nebulizer equipment Objective - Vital Signs Vital signs: Vital Signs Temp 98.3 F 01/11/22 07:59 Pulse 100 01/11/22 08:39 Resp 16 01/11/22 07:59 BP 130/57 01/11/22 07:59 Pulse Ox 93 L 01/11/22 08:29 FiO2 Intake & Output 01/10/22 01/11/22 01/11/22 18:59 06:59 18:59 Intake Total 240 550 Balance 240 550 Intake: Intake, IV Titration 240 Amount Sodium Chloride 0.9% 1, 240 000 ml @ 20 mls/hr IV . Q24H [facility] Rx#:[id number] Oral 550 Other: Voiding Method Toilet Toilet Toilet # Voids 2 - Exam Head: Atraumatic, normocephalic HEENT:[Neck is supple.] [No neck masses.] [No thyromegaly.] [No JVD.] Chest: [Symmetrical chest expansion scattered rhonchi and wheezes Cardiac Exam: [Normal S1 and S2, no S3 gallop, no murmur.] Abdomen: [Soft, nontender, no megaly, no rebound, no guarding, normal bowel sounds.] Extremities: [No clubbing, no edema, no cyanosis.] Neurological Exam: [No focal neurologic deficit.] Alert and oriented 3 Psychiatric: Depressed mood, normal affect, and normal mental status examination. Skin: No rashes Musculoskeletal: No deformities and no limitation in range of motion - Labs CBC & Chem 7: 01/11/22 06:16 01/11/22 06:16 Labs: Abnormal Lab Results - Last 24 Hours (Table) 01/11/22 01/11/22 Range/Units 06:16 06:16 WBC 10.10 H (4.50-10.00) X 10*3/uL RBC 6.17 H (4.10-5.20) X 10*6/uL Hgb 19.8 H* (12.0-15.0) g/dL Hct 61.5 H* (37.2-46.3) % MCV 99.7 H (80.0-97.0) fL MCH 32.1 H (27.0-32.0) pg RDW 14.9 H (11.5-14.5) % Immature Gran # 0.09 H (0.00-0.04) X 10*3/uL Neutrophils # 9.10 H (1.80-7.70) X 10*3/uL Lymphocytes # 0.57 L (0.90-5.00) X 10*3/uL Eosinophils # 0 L (0.04-0.35) X 10*3/uL BUN/Creatinine Ratio 24.41 H (12.00-20.00) Ratio Glucose 148 H (70-110) mg/dL Assessment and Plan Assessment: 1. Acute hypoxic respiratory failure - Patient is currently on O2 at 4 L per nasal cannula; we will titrate/wean to keep O2 saturation above 92% - Need for home O2 will be determined once stable and at time of discharge 2. Acute exacerbation COPD; patient is placed on Solu-Medrol 40 mg IV every 6 hours; bronchodilator nebulizer treatments 4 times a day and when necessary - Patient has been placed on Symbicort inhaler 1604.5 MCG 2 puffs twice a day 3. Acute tracheobronchitis; doxycycline 100 mg PO every 12 hours; monitor CBC, CRP and pro-calcitonin 4. Polycythemia vera; likely related to COPD/chronic hypoxic respiratory failure 5. Chronic tobacco use; counseling done on need for smoking cessation; patient doesn't seem to be too motivated 6. Osteoarthritis; likely acute exacerbation right ankle DVT prophylaxis; SCDs/ subcu Lovenox CODE STATUS; full code
[2022-01-11] MEDS: SODIUM CHLORIDE 0.9% 1,000 ML IV SCH (19:19)
[2022-01-11] MEDS: MELATONIN 3 MG TABLET PO SCH (22:06)
[2022-01-11] MEDS: ZOLPIDEM 5 MG TAB PO PRN (22:06)
[2022-01-12] MEDS: methylPREDNISolone SOD SUCCI 40 MG/ML 1 ML VIAL IV SCH ×4 (04:42→23:30)
[2022-01-12] MEDS: polyethylene glycoL 3350 17 GM POWD.PACK PO SCH (07:25)
[2022-01-12] MEDS: ENOXAPARIN 40 MG/0.4 ML SYRINGE SQ SCH (07:36)
[2022-01-12] MEDS: FAMOTIDINE 20 MG TAB PO SCH (07:36)
[2022-01-12] MEDS: DOXYCYCLINE 100 MG CAP PO SCH ×2 (07:36→21:59)
[2022-01-12] MEDS: CITALOPRAM HYDROBROMIDE 10 MG TAB PO SCH (07:36)
[2022-01-12] MEDS: SYMBICORT 160-4.5 MCG INHALER INHALATION SCH ×2 (08:40→21:06)
[2022-01-12] MEDS: IPRATROPIUM-ALBUTEROL 3 ML NEB INHALATION SCH ×4 (08:40→21:06)
--- NOTE | 2022-01-12 12:28 | P.PN ---
Subjective Progress Note Date: 01/12/22 Principal diagnosis: Shortness of breath This is a 71-year-old female who is 100 pack year smoker, never seen a heavy mobile equipment operator in the past, never been on any inhalers or office for her pulmonary symptoms. Patient has chronic and intermittent episodes of shortness of breath cough and wheezing. In the last 2 months, her shortness of breath and her other pulmonary symptoms have become more pronounced. Patient presented to the ER with classic symptoms of COPD exacerbation mostly cough which is productive with whitish phlegm, no fever no chills, she has no hemoptysis, she has mostly shortness of breath and intermittent wheezing. Patient is not O2 dependent not prednisone dependent and never been seen by a physician except years ago she had a right ankle injury otherwise no other issues. Patient lived in [place] for 15 years, however in the last 2 years, patient moved back to [place] where she was born and raised. Lives in [facility] facility, patient lives on her own, continues to smoke on the average of one or 2 packs per day. Chest x-ray on admission showed patchy bibasilar atelectasis and no evidence of infiltrate. patient was noted to be hypoxic on her initial presentation, treated with bronchodilators, admitted and this consult was initiated. WBC co unt is 5.8 hemoglobin 21.1 I d-dimer is 1.47, pO2 is 88 pCO2 48 pH of 7.41 and this is a 45% FiO2. Basic metabolic profile is relatively normal and renal profile is normal On 01/10/2022 patient seen in follow-up on medical surgical floor. She is improving, feeling better, breathing easier, still remains on 5 L of oxygen her pulse ox is 92-93%, FiO2 has been cut back to 3 L and patient's pulse ox remains at 94, without increased shortness of breath. She's been afebrile, vital signs have been stable. His labs have been reviewed, white blood cell count is 4.9, hemoglobin is 19.6, labs are still pending at this time, proBNP was 5400, troponin was negative at less than 0.012, d-dimer was 1.47. Patient remains on IV steroids, doxycycline for empiric antibiotic coverage, and nebulized bronc hodilators, clinically she is improving. On January 11, 2022 patient is seen in follow-up on medical surgical floor. She continues to improve, breathing much easier. Less bronchospastic. She states overnight she had a hard time sleeping, she is also reporting problems with constipation. Vital signs have been stable, FiO2 down to 4 L, she sat 90-93%. Patient does qualify for home oxygen as she was desaturating to 70s with ambulation on room air according to the nursing staff. She remains on empiric antibiotics in the form of doxycycline, Symbicort, DuoNeb and IV steroids. On 01/12/2022 patient seen in follow-up on medical surgical floor, she continues to improve, she is requiring 4 L of oxygen, her pulse ox is 94%, down to 89-90% with ambulation. Home oxygen is being arranged at 3-4 L/m. Today's labs have been reviewed showing WBC of 10.10, hemoglobin is 19.8, with hematocrit of 61.5, electrolytes and renal profile are within normal limits. Objective - Vital Signs Vital signs: Vital Signs Temp 98.1 F 01/12/22 07:28 Pulse 100 01/12/22 11:58 Resp 16 01/12/22 07:28 BP 126/76 01/12/22 07:28 Pulse Ox 89 L 01/12/22 11:06 FiO2 Intake & Output 01/11/22 01/12/22 01/12/22 18:59 06:59 18:59 Intake Total 240 Balance 240 Intake: Intake, IV Titration 240 Amount Sodium Chloride 0.9% 1, 240 000 ml @ 20 mls/hr IV . Q24H [facility] Rx#:[id number] Other: Voiding Method Toilet Toilet Toilet # Voids 4 - Exam GENERAL EXAM: Alert, very pleasant, 71-year-old white female, resting comfortably in bed, on 4l/min oxygen she sats 92-93% comfortable in no apparent distress. HEAD: Normocephalic/atraumatic. EYES: Normal reaction of pupils, equal size. Conjunctiva pink, sclera white. NOSE: Clear with pink turbinates. THROAT: No erythema or exudates. NECK: No masses, no JVD, no thyroid enlargement, no adenopathy. CHEST: No chest wall deformity. Symmetrical expansion. LUNGS: Equal air entry with no crackles, wheeze, rhonchi or dullness. CVS: Regular rate and rhythm, normal S1 and S2, no gallops, no murmurs, no rubs ABDOMEN: Soft, nontender. No hepatosplenomegaly, normal bowel sounds, no g uarding or rigidity. EXTREMITIES: No clubbing, no edema, no cyanosis, 2+ pulses and upper and lower extremities. MUSCULOSKELETAL: Muscle strength and tone normal. SPINE: No scoliosis or deformity SKIN: No rashes CENTRAL NERVOUS SYSTEM: Alert and oriented -3. No focal deficits, tone is normal in all 4 extremities. PSYCHIATRIC: Alert and oriented -3. Appropriate affect. Intact judgment and insight. - Labs CBC & Chem 7: 01/11/22 06:16 01/11/22 06:16 Assessment and Plan Plan: Assessment: #1. Acute hypoxic respiratory failure secondary to acute exacerbation of COPD #2. Suspect polycythemia vera secondary to chronic hypoxic respiratory failure and underlying COPD with acute tracheobronchitis #3. Tobacco dependence syndrome #4. Chronic osteoarthritis of right ankle secondary to trauma and fall Plan: Patient is improving She can be considered for discharge home today Home oxygen is being arranged at 3-4 L/m She will benefit from nebulized bronchodilators with DuoNeb 4 times a day and every 2 hours when necessary Wixela 250-50 one puff twice a day for maintenance inhaler Prednisone taper starting at 40 mg daily over 16 days Outpatient follow-up with Dr. Toussaint in the office I have personally seen and examined the patient, performed the documentation and the assessment and plan as written. Number of minutes spent on the visit: [10] Time with Patient: Less than 30
[2022-01-12] MEDS: SODIUM CHLORIDE 0.9% 1,000 ML IV SCH (17:57)
[2022-01-12 20:49] LABS: Glucose,Whole Blood 138 mg/dL (70-110)
--- NOTE | 2022-01-12 21:35 | P.PN ---
Subjective 71-year-old female she is a regular tobacco user. Patient does not have established care with primary care doctor. She rests emergency department sister for shortness of breath and dyspnea. Patient has not been feeling well for the last 1-2 weeks. She called her sister who then brought her to an urgent care. They found her to be hypoxic and told her to come to the emergency room. Patient states she's been short of breath. She has had a baseline cough is nonproductive of sputum. Denies any chest pain or chest pressure. Patient does complain of swelling to the bilateral lower extremities. Patient lived in [place] for 15 years, however in the last 2 years, patient moved back to [place] where she was born and raised. Lives in [facility] facility, patient lives on her own, continues to smoke on the average of one or 2 packs per day. Chest x-ray on admission showed patchy bibasilar atelectasis and no evidence of infiltrate. patient was noted to be hypoxic on her initial presentation, treated with bronchodilators, admitted and this consult was initiated. WBC count is 5.8 hemoglobin 21.1; Chemical profile reveals sodium 136, potassium 5.4, BUN/creatinine of 23/0.99 and blood glucose of 111; d-dimer is 1.47, pO2 is 88 pCO2 48 pH of 7.41 and this is a 45% FiO2. 01/11/2022 patient is seen in follow-up on medical surgical floor. She continues to improve, breathing much easier. Less bronchospastic. She states overnight she had a hard time sleeping, she is also reporting problems with constipation. Vital signs have been stable, FiO2 down to 4 L, she sat 90-93%. Patient does qualify for home oxygen as she was desaturating to 70s with ambulation on room air according to the nursing staff. She remains on empiric antibiotics in the form of doxycycline, Symbicort, DuoNeb and IV steroids. Pulmonary recommending to discharge patient home on 3-4 L of O2 per nasal cannula along with nebulized bronchodilators with DuoNeb 4 times a day and every 12 hours when necessary; patient is recommended Wixela [id number], 1 puff twice a day for maintenance inhaler and recommended to taper prednisone starting at 40 mg; patient to follow-up with Dr. Toussaint in his office Case management is consulted to make arrangements for home O2 and nebulizer equipment 01/12/2022 Patient with COPD exacerbation, her dyspnea improving, her oxygen requirements is down to 3-4 L/m. She is not on home oxygen Pulmonary team on the case Obdulio on doxycycline on Solu-Medrol 40 mg every 6 hours, looks like she is improving gradually She will be discharged was cleared by pulmonary service She is asking for something Philip Marks, she Objective - Vital Signs Vital signs: Vital Signs Temp 98.1 F 01/12/22 07:28 Pulse 110 H 01/12/22 11:06 Resp 16 01/12/22 07:28 BP 126/76 01/12/22 07:28 Pulse Ox 89 L 01/12/22 11:06 FiO2 Intake & Output 01/11/22 01/12/22 01/12/22 18:59 06:59 18:59 Intake Total 240 Balance 240 Intake: Intake, IV Titration 240 Amount Sodium Chloride 0.9% 1, 240 000 ml @ 20 mls/hr IV . Q24H [facility] Rx#:[id number] Other: Voiding Method Toilet Toilet Toilet # Voids 4 - Exam GENERAL: The patient is alert and oriented x3, not in any acute distress. Well developed, well nourished. HEENT: Pupils are round and equally reacting to light. EOMI. No scleral icterus. No conjunctival pallor. Normocephalic, atraumatic. No pharyngeal erythema. No thyromegaly. CARDIOVASCULAR: S1 and S2 present. No murmurs, rubs, or gallops. -PULMONARY: Chest is clear to auscultation, bilateral expiratory wheezing ABDOMEN: Soft, nontender, nondistended, normoactive bowel sounds. No palpable organomegaly. MUSCULOSKELETAL: No joint swelling or deformity. EXTREMITIES: No cyanosis, clubbing, or pedal edema. NEUROLOGICAL: Gross neurological examination did not reveal any focal deficits. SKIN: No rashes. no petechiae. - Labs CBC & Chem 7: 01/11/22 06:16 01/11/22 06:16 Assessment and Plan Assessment: Acute COPD exacerbation Acute hypoxic respiratory failure Secondary polycythemia, most likely secondary to chronic hypoxia Nicotine dependence History of osteoarthritis Plan: This is a pleasant 71 years old female with COPD exacerbation Continue with doxycycline Continue with Solu-Medrol Continue with pulmonary consult Patient informed about her high hemoglobin level and need to follow up with jacquard plate maker with Dr. Arce in 7-10 days after discharge and she verbalized understanding and acceptance Labs and medication were reviewed.. Continue same treatment. Continue with symptomatic treatment. Resume home medication. Monitor lytes and vitals. DVT and GI prophylaxis. Further recommendations as per clinical course of the patient DVT prophylaxis: Subcutaneous Lovenox GI Prophylaxis: Pepcid Prognosis is guarded
[2022-01-12] MEDS: MELATONIN 3 MG TABLET PO SCH (21:59)
[2022-01-12] MEDS: ZOLPIDEM 5 MG TAB PO PRN (21:59)
[2022-01-13] MEDS: methylPREDNISolone SOD SUCCI 40 MG/ML 1 ML VIAL IV SCH (06:14)
[2022-01-13] MEDS: SYMBICORT 160-4.5 MCG INHALER INHALATION SCH (08:05)
[2022-01-13] MEDS: IPRATROPIUM-ALBUTEROL 3 ML NEB INHALATION SCH (08:05)
[2022-01-13] MEDS: polyethylene glycoL 3350 17 GM POWD.PACK PO SCH (08:28)
[2022-01-13] MEDS: ENOXAPARIN 40 MG/0.4 ML SYRINGE SQ SCH (08:28)
[2022-01-13] MEDS: FAMOTIDINE 20 MG TAB PO SCH (08:28)
[2022-01-13] MEDS: CITALOPRAM HYDROBROMIDE 10 MG TAB PO SCH (08:29)
[2022-01-13] MEDS: DOXYCYCLINE 100 MG CAP PO SCH (08:29)
[2022-01-13 11:07] VITALS: BP 114/67; PULSE 96; RESP 15; TEMP 98.2
--- NOTE | 2022-01-13 22:51 | P.DS ---
Providers Date of admission: 01/09/22 14:01 Attending physician: Fausto Veliz MD Consults: 01/09/22 13:18 Consult Physician Routine Consulting Provider: Jes Toussaint Consult Reason/Comments: copd Do you want consulting provider notified?: Yes 01/09/22 13:43 Consult Physician Routine Consulting Provider: Gregor Gallagher Consult Reason/Comments: suicidal comments Do you want consulting provider notified?: Yes Primary care physician: Physician Nonstaff Hospital Course: Diagnoses: Acute COPD exacerbation Acute hypoxic respiratory failure Secondary polycythemia, most likely secondary to chronic hypoxia Nicotine dependence History of osteoarthritis diagnoses: Hospital course: 71-year-old female she is a regular tobacco user. Patient does not have established care with primary care doctor. She rests emergency department sister for shortness of breath and dyspnea. Patient was found to have acute hypoxic respiratory failure and acute COPD exacerbation and she's been treated with doxycycline, IV Solu-Medrol 40 mg and pulmonology team are following her closely, patient showed interval improvement and her breathing is back to baseline, patient was cleared for discharge by road cleaner on tapered steroids and to finish her course of oral antibiotic Patient denies other symptoms Patient was cleared for discharge by pulmonary service Patient has oxygen at home and she is at that night, patient was instructed to deep using a day until she sees her road cleaner as an outpatient. Problems and management plan were discussed with the patient and he verbalized understanding and acceptance Patient was found stable and can be discharged home in guarded prognosis however he needs follow-up as an outpatient. Patient was instructed to follow up with PCP Dr. Xiong/CRISTINA Kingston within one week and patient agrees Patient was instructed to follow up with her road cleaner Dr. Riddle on 01/23 and she agrees with this appointment as stated she will follow up Also patient referred to restuarant crew worker Dr. Arce as an outpatient in one week for her polycythemia and she agrees area Physical exam Gen: patient is a AAOx3, no distress CVS: S1-S2, RRR, no murmur Lungs: B/L CTA, bilateral mild scattered wheezing. On nasal cannula Abdomen: soft, no distention, no tenderness, positive bowel sounds Extremity: no leg edema or induration Time spent more than 35 minutes Patient Condition at Discharge: Serious Plan - Discharge Summary Discharge Rx Participant: Yes New Discharge Prescriptions: New Fluticasone Propion/Salmeterol [Wixela 250-50 Inhub] 1 inhalation PO BID 30 Days #1 each Citalopram Hydrobromide [CeleXA] 10 mg PO DAILY #30 tab predniSONE 0 mg PO DIRECTED 16 Days #40 tab Ipratropium-Albuterol Nebulize [Duoneb 0.5 mg-3 mg/3 ml Soln] 3 ml INHALATION QID 30 Days #400 ml Doxycycline [Vibramycin] 100 mg PO BID 7 Days #14 capsule polyethylene glycoL 3350 [Miralax] 17 gm PO DAILY PRN #3 packet PRN Reason: Constipation Famotidine [Pepcid] 20 mg PO DAILY #30 tab Discharge Medication List Doxycycline [Vibramycin] 100 mg PO BID 7 Days #14 capsule 01/11/22 [Rx] Fluticasone Propion/Salmeterol [Wixela 250-50 Inhub] 1 inhalation PO BID 30 Days #1 each 01/11/22 [Rx] Ipratropium-Albuterol Nebulize [Duoneb 0.5 mg-3 mg/3 ml Soln] 3 ml INHALATION QID 30 Days #400 ml 01/11/22 [Rx] predniSONE 0 mg PO DIRECTED 16 Days #40 tab 01/11/22 [Rx] Citalopram Hydrobromide [CeleXA] 10 mg PO DAILY #30 tab 01/13/22 [Rx] Famotidine [Pepcid] 20 mg PO DAILY #30 tab 01/13/22 [Rx] polyethylene glycoL 3350 [Miralax] 17 gm PO DAILY PRN #3 packet 01/13/22 [Rx] Follow up Appointment(s)/Referral(s): Jes Toussaint MD [STAFF PHYSICIAN] - 01/23/22 2:30 pm Manjit Arce MD [STAFF PHYSICIAN] - 1 Week (blood disease doctor: for your high blood level (Hemoglobin) Doctors office will call the patient with a date and time ) Reny Bill PAC [REFERRING] - 1-2 Days [facility] [NON-STAFF] - As Needed (Call to inquire about housekeeping services, transporatation, and Meals on Wheels if wanted. ) [facility] [NON-STAFF] - (Call [facility] when you get home and they will deliver your oxygen concentrator) [facility], [NON-STAFF] - 1-2 Days ([facility] will call you to schedule your in home nursing visits. ) Patient Instructions/Handouts: COPD (Chronic Obstructive Pulmonary Disease) (DC) Activity/Diet/Wound Care/Special Instructions: Heart healthy, low carbohydrate diet [address] per day Activity is restricted till you see your doctor Discharge/Stand Alone Forms: Community Resources Discharge Disposition: HOME WITH HOME HEALTH SERVICES
== END 2022-01-13 11:56 | disposition home health service (06) | DRG 189 ==
LOC: EC 12:07 → 4SSUR 14:01
PROVIDERS: ADMIT Internal Medicine; ATTEND Internal Medicine
DX: J96.21 Acute and chronic respiratory failure with hypoxia (principal); J44.1 Chronic obstructive pulmonary disease with (acute) exacerbation; J98.11 Atelectasis; J44.0 Chronic obstructive pulmonary disease with (acute) lower respiratory infection; J20.9 Acute bronchitis, unspecified; F43.25 Adjustment disorder with mixed disturbance of emotions and conduct; D75.1 Secondary polycythemia; M19.071 Primary osteoarthritis, right ankle and foot; F17.210 Nicotine dependence, cigarettes, uncomplicated; Z71.6 Tobacco abuse counseling; Z60.2 Problems related to living alone; K59.00 Constipation, unspecified
CPT/HCPCS: 36415; 36600; 71045; 80048; 80053; 82805; 83605; 83735; 83880; 84484; 85025; 85379; 85610; 85730; 93005; 94640; 94760; 96365; 96375; 99291

== ENCOUNTER 2022-09-02 08:03 | Observation (INO) | payer MEDICARE ==
[2022-09-02] MEDS ORDERED: IPRATROPIUM-ALBUTEROL 3 ML NEB INHALATION STA (08:41)
[2022-09-02] MEDS ORDERED: methylPREDNISolone SOD SUCCI 125 MG/2 ML VIAL IV STA (08:41)
--- NOTE | 2022-09-02 08:58 | XR ---
EXAMINATION TYPE: XR chest 2V DATE OF EXAM: 09/02/2022 8:52 AM COMPARISON: Chest radiographs from 12/30/2021 TECHNIQUE: XR chest 2V Frontal and lateral views of the chest. CLINICAL INDICATION:Female, 71 years old with history of difficulty breathing; FINDINGS: Lungs/Pleura: Prominent interstitial lung markings are seen scattered throughout the lungs with ever ening of the diaphragm and increased lucency of the lung apices. No evidence of focal consolidation, pneumothorax or pleural effusion. Pulmonary vascularity: Unremarkable. Heart/mediastinum: Cardiomediastinal silhouette is unremarkable. Musculoskeletal: No acute osseous pathology. IMPRESSION: 1. Chronic changes without acute pulmonary process. No significant change from prior. 2. COPD changes.
[2022-09-02 09:00] LABS: Basophils % (A) 0 %; Eosinophils # (A) 0.1 k/uL (0-0.7); Eosinophils % (A) 1 %; HCT 47.6 % (34.0-46.0); HGB 15.6 gm/dL (11.4-16.0); Lymphocytes # (A) 1.5 k/uL (1.0-4.8); Lymphocytes % (A) 25 %; MCH 31.7 pg (25.0-35.0); MCHC 32.8 g/dL (31.0-37.0); MCV 96.8 fL (80.0-100.0); Mean Platelet Volume 7.1; Monocytes # (A) 0.4 k/uL (0-1.0); Monocytes % (A) 6 %; Neutrophils # (A) 3.9 k/uL (1.3-7.7); Neutrophils % (A) 64 %; Platelet Count 249 k/uL (150-450); RBC 4.91 m/uL (3.80-5.40); RDW 13.4 % (11.5-15.5)
[2022-09-02 09:21] LABS: INR 0.9 (<1.2); Partial Thromboplastin Time 22.3 sec (22.0-30.0); Prothrombin Time 9.9 sec (9.0-12.0)
[2022-09-02 09:29] LABS: ALT 28 U/L (4-34); AST 31 U/L (14-36); African American GFR (CKD) >90 (>60 ml/min/1.73 sqM); Albumin 3.9 g/dL (3.5-5.0); Alkaline Phosphatase 130 U/L (38-126); Anion Gap 4 mmol/L; Blood Urea Nitrogen 7 mg/dL (7-17); Calcium 8.5 mg/dL (8.4-10.2); Carbon Dioxide 32 mmol/L (22-30); Chloride 100 mmol/L (98-107); Glucose 132 mg/dL (74-99); Non-African American GFR(CKD) >90 (>60 ml/min/1.73 sqM); Sodium 136 mmol/L (137-145); Total Protein 6.4 g/dL (6.3-8.2)
--- NOTE | 2022-09-02 10:00 | ED ---
SOB HPI - General Chief Complaint: Shortness of Breath Stated Complaint: sherrill Time Seen by Provider: 09/02/22 08:25 Source: patient, RN notes reviewed, old records reviewed Mode of arrival: EMS Limitations: no limitations - History of Present Illness Initial Comments: 71-year-old female, alert and oriented 4 presents to the emergency room via EMS with complaints of increasing shortness of breath and intermittent chest pain over the past 2 days. Patient states that her chest pain resolves after breathing treatment. EMS found patient sitting with oxygen sat of 83% on 4 L. Patient states that she does continue to smoke but has been smoking signifi cantly less over the past couple of days due to her shortness of breath. Denies any fevers. No nausea vomiting diarrhea. No abdominal pain. Does have a history of COPD with home oxygen 4 L MD Complaint: shortness of breath -: days(s) (2) Severity scale (1-10): 0 Associated Symptoms: chest pain Treatments Prior to Arrival: bronchodilator - Related Data Home Oxygen Therapy: Yes Home Oxygen Amount: 4 Liters Home Medications Medication Instructions Recorded Confirmed Albuterol Sulfate [Ventolin HFA] 2 puff INHALATION RT-QID PRN 09/02/22 09/02/22 Fluticasone Propion/Salmeterol 1 puff INHALATION RT-BID 09/02/22 09/02/22 [Advair 250-50 Diskus] Ibuprofen/Diphenhydramine HCl 1 - 2 cap PO HS 09/02/22 09/02/22 [Advil Pm Liqui-Gels] Ipratropium-Albuterol Nebulize 3 ml INHALATION RT-QID 09/02/22 09/02/22 [Duoneb 0.5 mg-3 mg/3 ml Soln] Allergies Allergy/AdvReac Type Severity Reaction Status Date / Time No Known Allergies Allergy Verified 09/02/22 11:00 Review of Systems ROS Statement: Those systems with pertinent positive or pertinent negative responses have been documented in the HPI. ROS Other: All systems not noted in ROS Statement are negative. Past Medical History Past Medical History: COPD Additional Past Medical History / Comment(s): Wears 4 liters at home History of Any Multi-Drug Resistant Organisms: None Reported Past Surgical History: No Surgical Hx Reported Past Psychological History: No Psychological Hx Reported Smoking Status: Current every day smoker Past Alcohol Use History: None Reported Past Drug Use History: None Reported, Marijuana General Exam Limitations: no limitations General appearance: alert, in no apparent distress Head exam: Present: atraumatic Eye exam: Present: normal appearance. Absent: scleral icterus, conjunctival injection, periorbital swelling, periorbital tenderness ENT exam: Present: mucous membranes moist Neck exam: Present: full ROM. Absent: tenderness, meningismus, lymphadenopathy Respiratory exam: Present: respiratory distress, wheezes, accessory muscle use Cardiovascular Exam: Present: tachycardia Extremities exam: Present: normal capillary refill. Absent: pedal edema Back exam: Present: normal inspection. Absent: tenderness, CVA tenderness (R), CVA tenderness (L), rash noted Neurological exam: Present: alert, oriented X3 Psychiatric exam: Present: normal affect, normal mood Skin exam: Present: warm, dry, normal color. Absent: cyanosis, diaphoretic, petechiae, pallor Course Vital Signs 09/02/22 09/02/22 09/02/22 08:04 08:23 09:14 Temperature 98.4 F Pulse Rate 117 H 137 H Respiratory 20 20 Rate Blood Pressure 113/66 O2 Sat by Pulse 93 L Oximetry 09/02/22 09/02/22 09/02/22 09:22 10:00 12:31 Temperature Pulse Rate 125 H 117 H 103 H Respiratory 20 Rate Blood Pressure 108/60 O2 Sat by Pulse Oximetry 09/02/22 09/02/22 09/02/22 12:40 12:45 14:00 Temperature Pulse Rate 101 H 78 112 H Respiratory 20 22 Rate Blood Pressure 103/64 110/65 O2 Sat by Pulse 94 L 94 L Oximetry 09/02/22 09/02/22 09/02/22 15:14 15:27 16:00 Temperature Pulse Rate 100 103 H 84 Respiratory 20 Rate Blood Pressure 103/60 O2 Sat by Pulse 95 Oximetry Medical Decision Making - Medical Decision Making EKG shows sinus tachycardia with ventricular rate of 1:15, NM interval 0.168, QRS 0.73, QTC 0.381, no significant change compared to old 01/09/2022 Patient was given a DuoNeb treatment and Solu-Medrol with improvement in her symptoms. Pulse ox up to 95% on nasal cannula. No further respiratory distress. Labs show no evidence of leukocytosis. D-dimer is negative. Electrolytes are unremarkable. Troponin negative at 0.012. Influenza RSV and coronavirus swabs negative. Chest x-ray interpreted by me shows no focal consolidation. Cardiac silhouette but within normal size. Radiologist interpretation chronic changes without acute pulmonary process. No significant change compared to old. COPD changes. Patient will be admitted with a COPD exacerbation. She is agreeable to this plan of care. Case discussed with Dr. Ma. Was pt. sent in by a medical professional or institution (, PA, ASSISTANT EDITOR, urgent care, hospital, or [facility]...) When possible be specific @ -[No] Did you speak to anyone other than the patient for history (EMS, parent, family, police, friend...)? What history was obtained from this source @ -[No] Did you review nursing and triage notes (agree or disagree)? Why? @ -[I reviewed and agree with nursing and triage notes] Were old charts reviewed (outside hosp., previous admission, EMS record, old EKG, old radiological studies, urgent care reports/EKG's, [facility] records)? Report findings @ -Old EKG as above Differential Diagnosis (chest pain, altered mental status, abdominal pain women, abdominal pain men, vaginal bleeding, weakness, fever, dyspnea, syncope, headache, dizziness, GI bleed, back pain, seizure, CVA, palpatations, mental health, musculoskeletal)? @ -Differential Dyspnea: Coronary syndrome, arrhythmia, tamponade, asthma, COPD, pulmonary embolism, pneumonia, pneumothorax, pulmonary effusion, anaphylaxis, diabetic ketoacidosis, flailed chest, pulmonary contusion, diaphragmatic rupture, anemia, neuromuscular, this is not meant to be an all-inclusive list. EKG interpreted by me (3pts min.). @ -[As above] X-rays interpreted by me (1pt min.). @ -Yes as above CT interpreted by me (1pt min.). @ -[None done] U/S interpreted by me (1pt. min.). @ -[None done] What testing was considered but not performed or refused? (CT, X-rays, U/S, labs)? Why? @ -[None] What meds were considered but not given or refused? Why? @ -Antibiotics were considered however there is no evidence of a focal consolidation or concern for pneumonia Did you discuss the management of the patient with other professionals (professionals i.e. , PA, ASSISTANT EDITOR, lab, RT, psych nurse, social psychologist, masking machine feeder, teacher, disbursing officer, rn case mgr)? Give summary @ -[No] Was smoking cessation discussed for >3mins.? @ -Yes Was critical care preformed (if so, how long)? @ -[No] Were there social determinants of health that impacted care today? How? (H omelessness, low income, unemployed, alcoholism, drug addiction, transportation, low edu. Level, literacy, decrease access to med. care, nursing home, rehab)? @ -[No] Was there de-escalation of care discussed even if they declined (Discuss DNR or withdrawal of care, Hospice)? DNR status @ -[No] What co-morbidities impacted this encounter? (DM, HTN, Smoking, COPD, CAD, Cancer, CVA, ARF, Chemo, Hep., AIDS, mental health diagnosis, sleep apnea, morbid obesity)? @ -COPD, smoker Was patient admitted / discharged? Hospital course, mention meds given and route, prescriptions, significant lab abnormalities, going to OR and other pertinent info. @ -Admitted Undiagnosed new problem with uncertain prognosis? @ -[No] Drug Therapy requiring intensive monitoring for toxicity (Heparin, Nitro, Insulin, Cardizem)? @ -[No] Were any procedures done? @ -[No] Diagnosis/symptom? @ -COPD exacerbation Acute, or Chronic, or Acute on Chronic? @ -Acute on chronic Uncomplicated (without systemic symptoms) or Complicated (systemic symptoms)? @ -Uncomplicated Side effects of treatment? @ -[No] Exacerbation, Progression, or Severe Exacerbation? @ -[No] Poses a threat to life or bodily function? How? (Chest pain, [place], [place], pneumonia, PE, COPD, DKA, ARF, appy, cholecystitis, CVA, Diverticulitis, Homicidal, Suicidal, threat to staff... and all critical care pts) @ -COPD exacerbation with hypoxia 83% at home per EMS on home oxygen - Lab Data Result diagrams: 09/02/22 08:44 09/02/22 08:44 Lab Results 09/02/22 09/02/22 09/02/22 Range/Units 08:44 08:44 08:44 WBC 6.0 (3.8-10.6) k/uL RBC 4.91 (3.80-5.40) m/uL Hgb 15.6 (11.4-16.0) gm/dL Hct 47.6 H (34.0-46.0) % MCV 96.8 (80.0-100.0) fL MCH 31.7 (25.0-35.0) pg MCHC 32.8 (31.0-37.0) g/dL RDW 13.4 (11.5-15.5) % Plt Count 249 (150-450) k/uL MPV 7.1 Neutrophils % 64 % Lymphocytes % 25 % Monocytes % 6 % Eosinophils % 1 % Basophils % 0 % Neutrophils # 3.9 (1.3-7.7) k/uL Lymphocytes # 1.5 (1.0-4.8) k/uL Monocytes # 0.4 (0-1.0) k/uL Eosinophils # 0.1 (0-0.7) k/uL Basophils # 0.0 (0-0.2) k/uL PT 9.9 (9.0-12.0) sec INR 0.9 (<1.2) APTT 22.3 (22.0-30.0) sec D-Dimer (<0.60) mg/L FEU Sodium 136 L (137-145) mmol/L Potassium 4.0 (3.5-5.1) mmol/L Chloride 100 (98-107) mmol/L Carbon Dioxide 32 H (22-30) mmol/L Anion Gap 4 mmol/L BUN 7 (7-17) mg/dL Creatinine 0.54 (0.52-1.04) mg/dL Est GFR (CKD-EPI)AfAm >90 (>60 ml/min/1.73 sqM) Est GFR (CKD-EPI)NonAf >90 (>60 ml/min/1.73 sqM) Glucose 132 H (74-99) mg/dL Plasma Lactic Acid Jan (0.7-2.0) mmol/L Calcium 8.5 (8.4-10.2) mg/dL Magnesium 2.0 (1.6-2.3) mg/dL Total Bilirubin 1.0 (0.2-1.3) mg/dL AST 31 (14-36) U/L ALT 28 (4-34) U/L Alkaline Phosphatase 130 H (38-126) U/L Troponin I (0.000-0.034) ng/mL Total Protein 6.4 (6.3-8.2) g/dL Albumin 3.9 (3.5-5.0) g/dL 09/02/22 09/02/22 09/02/22 Range/Units 08:44 08:44 08:44 WBC (3.8-10.6) k/uL RBC (3.80-5.40) m/uL Hgb (11.4-16.0) gm/dL Hct (34.0-46.0) % MCV (80.0-100.0) fL MCH (25.0-35.0) pg MCHC (31.0-37.0) g/dL RDW (11.5-15.5) % Plt Count (150-450) k/uL MPV Neutrophils % % Lymphocytes % % Monocytes % % Eosinophils % % Basophils % % Neutrophils # (1.3-7.7) k/uL Lymphocytes # (1.0-4.8) k/uL Monocytes # (0-1.0) k/uL Eosinophils # (0-0.7) k/uL Basophils # (0-0.2) k/uL PT (9.0-12.0) sec INR (<1.2) APTT (22.0-30.0) sec D-Dimer 0.48 (<0.60) mg/L FEU Sodium (137-145) mmol/L Potassium (3.5-5.1) mmol/L Chloride (98-107) mmol/L Carbon Dioxide (22-30) mmol/L Anion Gap mmol/L BUN (7-17) mg/dL Creatinine (0.52-1.04) mg/dL Est GFR (CKD-EPI)AfAm (>60 ml/min/1.73 sqM) Est GFR (CKD-EPI)NonAf (>60 ml/min/1.73 sqM) Glucose (74-99) mg/dL Plasma Lactic Acid Jan 1.1 (0.7-2.0) mmol/L Calcium (8.4-10.2) mg/dL Magnesium (1.6-2.3) mg/dL Total Bilirubin (0.2-1.3) mg/dL AST (14-36) U/L ALT (4-34) U/L Alkaline Phosphatase (38-126) U/L Troponin I <0.012 (0.000-0.034) ng/mL Total Protein (6.3-8.2) g/dL Albumin (3.5-5.0) g/dL - EKG Data Rate: tachycardia (Sinus tachycardia with ventricular rate of 1:15, NM interval 0.168, QRS 0.73, QTC 0.381, no significant change compared to old 01/09/2022) Disposition Clinical Impression: COPD exacerbation Disposition: ADMITTED IP TO THIS HOSP Decision Date: 09/02/22
[2022-09-02] MEDS ORDERED: NALOXONE 0.4 MG/ML 1 ML VIAL IV PRN (11:02)
[2022-09-02] MEDS ORDERED: ACETAMINOPHEN TAB 325 MG TAB PO PRN (11:03)
[2022-09-02] MEDS ORDERED: ALBUTEROL NEBULIZED 2.5 MG/3 ML INHALATION PRN (11:04)
[2022-09-02] MEDS: NICOTINE 7MG/24HR PATCH TRANSDERM SCH (11:26)
[2022-09-02] MEDS: IPRATROPIUM-ALBUTEROL 3 ML NEB INHALATION SCH ×3 (12:30→21:57)
[2022-09-02] MEDS: methylPREDNISolone SOD SUCCI 125 MG/2 ML VIAL IV SCH ×2 (20:36→23:23)
[2022-09-02] MEDS: SYMBICORT 80-4.5 MCG INHALER INHALATION SCH (21:57)
[2022-09-02] MEDS: ALPRAZolam 0.25 MG TAB PO PRN (23:23)
[2022-09-02] MEDS: HEPARIN SODIUM,PORCINE/PF 5,000 UNIT/0.5 ML SYRINGE SQ SCH (23:24)
--- NOTE | 2022-09-03 02:25 | P.HPIM ---
History of Present Illness H&P Date: 09/02/22 Chief Complaint: Shortness of breath Patient is a 71-year-old female with known history of COPD on oxygen at 4 L via nasal cannula and currently everyday smoker presents to ER with complaints of shortness of breath for the past 2 days. Patient pressure-like chest tightness and unable to take deep breath. Unable to bring up any sputum. Intermittent cough. EMS was called due to worsening shortness of breath. Patient was found to be hypoxic with pulse ox 83% on 4 L when the EMS arrived. Ordered patient continues to smoke but less significantly during the last couple days due to shortness of breath. No complaints of pruritus. No nausea vomiting abdominal pain or diarrhea. No recent illnesses. No leg swelling. No sick contacts. Chest x-ray showed no acute cardiopulmonary process. EKG showed sinus tachycardia. Laboratory data showed WBC 6.0 hemoglobin 15.6 and platelets 249 D-dimer is not elevated to 0.48 Sodium 136 potassium 4.0 chloride 100 bicarb is 32 BUN 7 creatinine 0.54 and blood sugar is 132 and magnesium 2.0 alk phos 130 troponin x1 negative and COVID-19 PCR not detected. Influenza A B and RSV negative. Review of Systems Constitutional: Patient denies any fever or chills . no Generalized weakness. Abdomen: Patient denied any nausea or vomiting or abd. pain Cardiovascular: Patient denies any chest pain or short of breath no palpitations. Respiratory: Denies any complaints of cough or sputum production. Shortness of breath and chest tightness. Neurologic: Patient denied any numbness or tingling headache. Musculoskeletal: Patient denies any complaints of joint swelling or deformity. Skin: Negative Psychiatric: Negative Endocrine: No heat or cold intolerance. No recent weight gain. Genitourinary: No dysuria or hematuria. All other 14 point ROS negative except the above Past Medical History Past Medical History: COPD Additional Past Medical History / Comment(s): Wears 4 liters at home History of Any Multi-Drug Resistant Organisms: None Reported Past Surgical History: No Surgical Hx Reported Past Anesthesia/Blood Transfusion Reactions: No Reported Reaction Past Psychological History: No Psychological Hx Reported Smoking Status: Current every day smoker Past Alcohol Use History: None Reported Additional Past Alcohol Use History / Comment(s): states she quit about 2 weeks ago, she stated she would only smoke one in the morning and one at night prior to that. Past Drug Use History: None Reported, Marijuana Medications and Allergies Home Medications Medication Instructions Recorded Confirmed Type Albuterol Sulfate [Ventolin HFA] 2 puff INHALATION RT-QID PRN 09/02/22 09/02/22 History Fluticasone Propion/Salmeterol 1 puff INHALATION RT-BID 09/02/22 09/02/22 History [Advair 250-50 Diskus] Ibuprofen/Diphenhydramine HCl 1 - 2 cap PO HS 09/02/22 09/02/22 History [Advil Pm Liqui-Gels] Ipratropium-Albuterol Nebulize 3 ml INHALATION RT-QID 09/02/22 09/02/22 History [Duoneb 0.5 mg-3 mg/3 ml Soln] Allergies Allergy/AdvReac Type Severity Reaction Status Date / Time No Known Allergies Allergy Verified 09/02/22 11:00 Physical Exam Vitals: Vital Signs Temp Pulse Pulse Resp BP Pulse Ox 09/02/22 16:00 84 20 103/60 95 09/02/22 15:27 103 H 09/02/22 15:14 100 09/02/22 14:00 98.7 F 112 H 110 H 20 110/65 89 L 09/02/22 12:45 78 20 103/64 94 L 09/02/22 12:40 101 H 09/02/22 12:31 103 H 09/02/22 10:00 117 H 20 108/60 09/02/22 09:22 125 H 09/02/22 09:14 137 H 09/02/22 08:23 20 09/02/22 08:04 98.4 F 117 H 20 113/66 93 L Intake and Output 09/02/22 09/02/22 09/02/22 06:59 14:59 22:59 Other: # Voids 2 Weight 61.235 kg 61.235 kg PHYSICAL EXAMINATION: Patient is lying in the bed comfortably, no acute distress, awake alert and oriented.. HEENT: Normocephalic. Neck is supple. Pupils reactive. Nostrils clear. Oral cavi ty is moist. Neck reveals no JVD, carotid bruits, or thyromegaly. CHEST EXAMINATION: Trachea is central. Symmetrical expansion. Bilateral diffuse wheezing and diminished sounds.. CARDIAC: Normal S1, S2 with no gallops. No murmurs ABDOMEN: Soft. Bowel sounds present. Nontender. No organomegaly. No abdominal bruits. Extremities: reveal no edema. No clubbing or cyanosis Neurologically awake, alert, oriented x3 with well-coordinated movements. No focal deficits noted Skin: No rash or skin lesions. Psychiatric: Coperative. Nonsuicidal, anxious. Musculoskeletal: No joint swelling or deformity. Normal range of motion. Results CBC & Chem 7: 09/02/22 08:44 09/02/22 08:44 Labs: Abnormal Lab Results - Last 24 Hours (Table) 09/02/22 09/02/22 Range/Units 08:44 08:44 Hct 47.6 H (34.0-46.0) % Sodium 136 L (137-145) mmol/L Carbon Dioxide 32 H (22-30) mmol/L Glucose 132 H (74-99) mg/dL Alkaline Phosphatase 130 H (38-126) U/L Thrombosis Risk Factor Assmnt - DVT/VTE Prophylaxis DVT/VTE Prophylaxis: Pharmacologic Prophylaxis ordered - Choose All That Apply Each Factor Represents 1 point: Abnormal pulmonary function (COPD) Each Risk Factor Represents 2 Points: Age 61-74 years Thrombosis Risk Factor Assessment Total Risk Factor Score: 3 Thrombosis Risk Factor Assessment Level: Moderate Risk Assessment and Plan Assessment: Worsening shortness of breath secondary to acute COPD exacerbation Acute on chronic hypoxic respiratory failure on admission. Patient is on 4 L oxygen via nasal cannula at home Currently everyday smoker Anxiety DVT prophylaxis with heparin subcu Plan: Patient will be placed on oxygen supplementation. Titrate down to 4 L as per her home regimen. Continue with IV Solu-Medrol 60 mg every 6 hourly and DuoNebs and symptomatic management. Follow-up closely.
[2022-09-03] MEDS: methylPREDNISolone SOD SUCCI 125 MG/2 ML VIAL IV SCH ×4 (05:47→23:28)
[2022-09-03] MEDS: HEPARIN SODIUM,PORCINE/PF 5,000 UNIT/0.5 ML SYRINGE SQ SCH ×3 (08:43→23:27)
[2022-09-03] MEDS: NICOTINE 7MG/24HR PATCH TRANSDERM SCH (08:47)
[2022-09-03] MEDS: BUDESONIDE 1 MG/2 ML NEBU INHALATION SCH ×2 (09:46→20:36)
[2022-09-03] MEDS: IPRATROPIUM-ALBUTEROL 3 ML NEB INHALATION SCH ×4 (09:46→20:36)
[2022-09-03] MEDS: FORMOTEROL FUMARATE 20 MCG/2 ML NEBU INHALATION SCH ×2 (09:46→20:36)
[2022-09-03] MEDS: SYMBICORT 80-4.5 MCG INHALER INHALATION SCH (09:56)
--- NOTE | 2022-09-03 10:24 | P.CNPUL ---
History of Present Illness Consult date: 09/03/22 Requesting physician: Layne Cutler Reason for consult: COPD Chief complaint: Shortness of breath History of present illness: This is a pleasant 71-year-old female patient with a known history of chronic and ongoing tobacco dependence of greater than 50 years, oxygen dependent severe Gold stage III/for chronic obstructive pulmonary disease. She follows with Dr. Toussaint in our office. She is maintained on Advair, albuterol, DuoNeb inhalations. She was brought into the emergency room yesterday by EMS after worsening shortness of breath and O2 saturation 83% on her home oxygen of 4 L. She had been having shortness of breath for 2 days prior. No fever chills. No cough or congestion. No hemoptysis. Chest x-ray revealed chronic changes without acute pulmonary process. Evidence of COPD. White count 6.0. Hemoglobin 15.6. D-dimer 0.48. Sodium 136. Potassium 4.0. Bicarb 32. BUN 7. Creatinine 0.54. Glucose 132. Influenza screen negative. RSV screen negative. COVID-19 screen negative. She is seen today in consultation on the regular medical floor. Currently sitting up in bed. Awake and alert in no acute distress. She is dyspneic with exertion. Dyspneic with minimal conversation. Maintaining O2 saturations in the 90s on 4 L/m per nasal cannula. She's been initiated on DuoNeb inhalations, Pulmicort and performance inhalations, IV Solu-Medrol. NicoDerm patch is in place. Review of Systems REVIEW OF SYSTEMS: CONSTITUTIONAL: Denies any recent significant weight loss or weight gain. EYES: Denies change in vision. EARS, NOSE, MOUTH, THROAT: Denies headaches, denies sore throat. CARDIOVASCULAR: Denies chest pain, palpitations or syncopal episodes. RESPIRATORY: Positive for shortness of breath, no cough, congestion or hemoptysis. GASTROINTESTINAL: Denies change in appetite, denies abdominal pain GENITOURINARY: Denies hematuria, denies infections. MUSKULOSKELETAL: Denies pain, denies swelling. INTEGUMENTARY: Denies rash, denies eczema. NEUROLOGICAL: Denies recent memory loss, no recent seizure activity. PSYCHIATRIC: Denies anxiety, denies depression. HEMATOLOGIC/LYMPHATIC: Denies anemia, denies enlarged lymph nodes. Past Medical History Past Medical History: COPD Additional Past Medical History / Comment(s): Wears 4 liters at home History of Any Multi-Drug Resistant Organisms: None Reported Past Surgical History: No Surgical Hx Reported Past Anesthesia/Blood Transfusion Reactions: No Reported Reaction Past Psychological History: No Psychological Hx Reported Smoking Status: Current every day smoker Past Alcohol Use History: None Reported Additional Past Alcohol Use History / Comment(s): states she quit about 2 weeks ago, she stated she would only smoke one in the morning and one at night prior to that. Past Drug Use History: None Reported, Marijuana Medications and Allergies Home Medications Medication Instructions Recorded Confirmed Type Albuterol Sulfate [Ventolin HFA] 2 puff INHALATION RT-QID PRN 09/02/22 09/02/22 History Fluticasone Propion/Salmeterol 1 puff INHALATION RT-BID 09/02/22 09/02/22 History [Advair 250-50 Diskus] Ibuprofen/Diphenhydramine HCl 1 - 2 cap PO HS 09/02/22 09/02/22 History [Advil Pm Liqui-Gels] Ipratropium-Albuterol Nebulize 3 ml INHALATION RT-QID 09/02/22 09/02/22 History [Duoneb 0.5 mg-3 mg/3 ml Soln] Allergies Allergy/AdvReac Type Severity Reaction Status Date / Time No Known Allergies Allergy Verified 09/02/22 11:00 Physical Exam Vitals: Vital Signs Temp Pulse Pulse Resp BP BP Pulse Ox 09/03/22 10:08 94 20 09/03/22 09:58 90 20 09/03/22 09:57 90 20 09/03/22 09:46 88 20 94 L 09/03/22 07:10 98.9 F 97 18 108/72 93 L 09/03/22 02:31 97.8 F 94 16 108/73 92 L 09/02/22 22:06 95 09/02/22 21:57 100 09/02/22 20:00 97.9 F 109 H 20 90 L 09/02/22 19:19 97.9 F 109 H 20 107/66 90 L 09/02/22 16:00 84 20 103/60 95 09/02/22 15:27 103 H 09/02/22 15:14 100 09/02/22 14:00 98.7 F 112 H 110 H 20 110/65 89 L 09/02/22 12:45 78 20 103/64 94 L 09/02/22 12:40 101 H 09/02/22 12:31 103 H Intake and Output 09/02/22 09/03/22 09/03/22 22:59 06:59 14:59 Intake Total 440 Balance 440 Intake: Oral 440 Other: Voiding Method Toilet # Voids 2 1 Weight 61.235 kg GENERAL EXAM: Alert, pleasant 71-year-old female, on 4 L nasal cannula, fairly comfortable in no apparent distress. HEAD: Normocephalic. EYES: Normal reaction of pupils, equal size. NOSE: Clear with pink turbinates. THROAT: No erythema or exudates. NECK: No masses, no JVD. CHEST: No chest wall deformity. LUNGS: Equal air entry with bilateral end expiratory wheeze, diminished. CVS: S1 and S2 normal with no audible murmur, regular rhythm. ABDOMEN: No hepatosplenomegaly, normal bowel sounds, no guarding or rigidity. SPINE: No scoliosis or deformity SKIN: No rashes CENTRAL NERVOUS SYSTEM: No focal deficits, tone is normal in all 4 extremities. EXTREMITIES: There is no peripheral edema. No clubbing, no cyanosis. Peripheral pulses are intact. Results - Laboratory Findings CBC and BMP: 09/02/22 08:44 09/02/22 08:44 PT/INR, D-dimer PT 9.9 sec (9.0-12.0) 09/02/22 08:44 INR 0.9 (<1.2) 09/02/22 08:44 D-Dimer 0.48 mg/L FEU (<0.60) 09/02/22 08:44 Abnormal lab findings: Abnormal Labs 09/02/22 09/02/22 08:44 08:44 Hct 47.6 H Sodium 136 L Carbon Dioxide 32 H Glucose 132 H Alkaline Phosphatase 130 H - Diagnostic Findings Chest x-ray: image reviewed Assessment and Plan Assessment: Acute exacerbation of severe oxygen dependent chronic obstructive pulmonary disease. FEV1 value 32% of predicted Chronic and ongoing tobacco dependence of greater than 50 years Plan: The patient was seen and evaluated Chest x-ray, labs and medications reviewed Initiate Pulmicort and Perforomist inhalations Initiate DuoNeb inhalations 4 times a day and when necessary Initiate IV Solu-Medrol Educated regarding the importance of complete smoking cessation NicoDerm patch in place Titrate the FiO2 as tolerated We'll continue to follow make further recommendations based on her clinical status I have personally seen and examined the patient, performed the documentation and the assessment and plan as written. Number of minutes spent on the visit: 20.
[2022-09-03 11:00] LABS: Basophils # (A) 0.01 X 10*3/uL (0.00-0.10); Basophils % (A) 0.1 %; Eosinophils # (A) 0 X 10*3/uL (0.04-0.35); Eosinophils % (A) 0 %; HGB 16.1 g/dL (12.0-15.0); Immature Grans, Automated 0.7 %; Lymphocytes # (A) 1.07 X 10*3/uL (0.90-5.00); Lymphocytes % (A) 14.5 %; MCH 31.2 pg (27.0-32.0); MCHC 31.6 g/dL (32.0-37.0); MCV 98.8 fL (80.0-97.0); Mean Platelet Volume 9.6 fL (9.5-12.2); Monocytes # (A) 0.38 X 10*3/uL (0.20-1.00); Monocytes % (A) 5.2 %; NRBC Per 100 WBC 0 /100 WBCS (0.0-0.0); Neutrophils # (A) 5.85 X 10*3/uL (1.80-7.70); Neutrophils % (A) 79.5 %; Platelet Count 286 X 10*3/uL (140-440); RBC 5.16 X 10*6/uL (4.10-5.20); RDW 13.1 % (11.5-14.5); WBC 7.36 X 10*3/uL (4.50-10.00)
[2022-09-03 11:26] LABS: African American GFR (CKD) 101.7 (60.0-200.0); BUN/Creat Ratio 19.29 Ratio (12.00-20.00); Blood Urea Nitrogen 13.5 mg/dL (9.0-27.0); Calcium 9.8 mg/dL (8.7-10.3); Carbon Dioxide 33.7 mmol/L (20.0-27.5); Chloride 96 mmol/L (96-109); Glucose 153 mg/dL (70-110); Non-African American GFR(CKD) 87.8 (60.0-200.0); Potassium 5.1 mmol/L (3.5-5.5); Sodium 140 mmol/L (135-145)
[2022-09-03] MEDS: ALPRAZolam 0.25 MG TAB PO PRN (13:16)
--- NOTE | 2022-09-03 14:09 | P.PN ---
Subjective Progress Note Date: 09/03/22 Patient is a 71-year-old female with known history of COPD on oxygen at 4 L via nasal cannula and currently everyday smoker presents to ER with complaints of shortness of breath for the past 2 days. Patient pressure-like chest tightness and unable to take deep breath. Unable to bring up any sputum. Intermittent cough. EMS was called due to worsening shortness of breath. Patient was found to be hypoxic with pulse ox 83% on 4 L when the EMS arrived. Ordered patient continues to smoke but less significantly during the last couple days due to shortness of breath. No complaints of pruritus. No nausea vomiting abdominal pain or diarrhea. No recent illnesses. No leg swelling. No sick contacts. Chest x-ray showed no acute cardiopulmonary process. EKG showed sinus tachycardia. Laboratory data showed WBC 6.0 hemoglobin 15.6 and platelets 249 D-dimer is not elevated to 0.48 Sodium 136 potassium 4.0 chloride 100 bicarb is 32 BUN 7 creatinine 0.54 and blood sugar is 132 and magnesium 2.0 alk phos 130 troponin x1 negative and COVID-19 PCR not detected. Influenza A B and RSV negative. 09/03 patient seen and examined. Still states that she is shortness of breath on slight exertion. Currently on 4 L of oxygen. Complaining of cough REVIEW OF SYSTEMS: CONSTITUTIONAL: No fever, no malaise,. CARDIOVASCULAR: No chest pain, no palpitations, no syncope. PULMONARY: As mentioned in HPI GASTROINTESTINAL: No diarrhea, no nausea, no vomiting, no abdominal pain. NEUROLOGICAL: No headaches, no weakness, PHYSICAL EXAMINATION: GENERAL: The patient is alert and oriented x3, not in any acute distress. Well developed, well nourished. HEENT: Pupils are round and equally reacting to light. EOMI. No scleral icterus. No conjunctival pallor. Normocephalic, atraumatic. No pharyngeal erythema. No thyromegaly. CARDIOVASCULAR: S1 and S2 present. No murmurs, rubs, or gallops. PULMONARY: Coarse breath sounds bilaterally, expiratory wheeze audible ABDOMEN: Soft, nontender, nondistended, normoactive bowel sounds. No palpable organomegaly. MUSCULOSKELETAL: No joint swelling or deformity. EXTREMITIES: No cyanosis, clubbing, or pedal edema. NEUROLOGICAL: Gross neurological examination did not reveal any focal deficits. SKIN: No rashes. Assessment and plan Worsening shortness of breath secondary to acute COPD exacerbation Acute on chronic hypoxic respiratory failure on admission. Patient is on 4 L oxygen via nasal cannula at home Currently everyday smoker Anxiety DVT prophylaxis with heparin subcu Plan; Monitor vital signs Monitor CBC Monitor CMP Continue telemetry monitoring Continue breathing treatments Continue Solu-Medrol Pulmonary consulted Objective - Vital Signs Vital signs: Vital Signs Temp 98.9 F 09/03/22 07:10 Pulse 90 09/03/22 09:58 Resp 20 09/03/22 09:58 BP 108/72 09/03/22 07:10 Pulse Ox 94 L 09/03/22 09:46 FiO2 Intake & Output 09/02/22 09/03/22 09/03/22 18:59 06:59 18:59 Intake Total 440 Balance 440 Weight 61.235 kg Intake: Oral 440 Other: Voiding Method Toilet # Voids 2 1 - Labs CBC & Chem 7: 09/03/22 06:08 09/03/22 06:08
[2022-09-03] MEDS ORDERED: ALBUTEROL NEBULIZED 2.5 MG/3 ML INHALATION PRN (14:51)
[2022-09-03] MEDS: IBUPROFEN 400 MG TAB PO PRN (15:00)
[2022-09-03] MEDS ORDERED: BUDESONIDE 1 MG/2 ML NEBU INHALATION SCH (20:00)
[2022-09-03] MEDS ORDERED: FORMOTEROL FUMARATE 20 MCG/2 ML NEBU INHALATION SCH (20:00)
[2022-09-04] MEDS: methylPREDNISolone SOD SUCCI 125 MG/2 ML VIAL IV SCH (06:08)
[2022-09-04] MEDS: HEPARIN SODIUM,PORCINE/PF 5,000 UNIT/0.5 ML SYRINGE SQ SCH ×3 (07:52→23:43)
[2022-09-04] MEDS: polyethylene glycoL 3350 17 GM POWD.PACK PO SCH (08:07)
[2022-09-04] MEDS: NICOTINE 7MG/24HR PATCH TRANSDERM SCH (08:07)
[2022-09-04] MEDS: SYMBICORT 160-4.5 MCG INHALER INHALATION SCH ×3 (09:08→22:18)
[2022-09-04] MEDS: IPRATROPIUM-ALBUTEROL 3 ML NEB INHALATION SCH ×5 (09:09→22:18)
[2022-09-04] MEDS: FORMOTEROL FUMARATE 20 MCG/2 ML NEBU INHALATION SCH (09:13)
[2022-09-04] MEDS: BUDESONIDE 1 MG/2 ML NEBU INHALATION SCH (09:13)
[2022-09-04] MEDS: predniSONE 20 MG TAB PO SCH (09:59)
[2022-09-04 11:16] LABS: Basophils # (A) 0.02 X 10*3/uL (0.00-0.10); Basophils % (A) 0.2 %; Eosinophils # (A) 0 X 10*3/uL (0.04-0.35); Eosinophils % (A) 0 %; HCT 48.9 % (37.2-46.3); HGB 15.6 g/dL (12.0-15.0); Immature Grans, Automated 0.7 %; Lymphocytes # (A) 1.08 X 10*3/uL (0.90-5.00); Lymphocytes % (A) 8.9 %; MCH 31.4 pg (27.0-32.0); MCHC 31.9 g/dL (32.0-37.0); MCV 98.4 fL (80.0-97.0); Mean Platelet Volume 9.6 fL (9.5-12.2); Monocytes # (A) 0.57 X 10*3/uL (0.20-1.00); Monocytes % (A) 4.7 %; NRBC Per 100 WBC 0 /100 WBCS (0.0-0.0); Neutrophils # (A) 10.33 X 10*3/uL (1.80-7.70); Neutrophils % (A) 85.5 %; Platelet Count 308 X 10*3/uL (140-440); RBC 4.97 X 10*6/uL (4.10-5.20); RDW 13.2 % (11.5-14.5); WBC 12.08 X 10*3/uL (4.50-10.00)
[2022-09-04 11:28] LABS: African American GFR (CKD) 86.6 (60.0-200.0); Albumin 4.3 g/dL (3.8-4.9); Albumin/Globulin Ratio 1.79 (1.60-3.17); BUN/Creat Ratio 25.13 Ratio (12.00-20.00); Blood Urea Nitrogen 20.1 mg/dL (9.0-27.0); Calcium 9.6 mg/dL (8.7-10.3); Globulin 2.4 g/dL (1.6-3.3); Non-African American GFR(CKD) 74.7 (60.0-200.0); Potassium 4.9 mmol/L (3.5-5.5); Total Bilirubin 0.2 mg/dL (0.30-1.20); Total Protein 6.7 g/dL (6.2-8.2)
[2022-09-04] MEDS: IBUPROFEN 400 MG TAB PO PRN (13:00)
--- NOTE | 2022-09-04 13:38 | P.PN ---
Subjective Progress Note Date: 09/04/22 Patient is a 71-year-old female with known history of COPD on oxygen at 4 L via nasal cannula and currently everyday smoker presents to ER with complaints of shortness of breath for the past 2 days. Patient pressure-like chest tightness and unable to take deep breath. Unable to bring up any sputum. Intermittent cough. EMS was called due to worsening shortness of breath. Patient was found to be hypoxic with pulse ox 83% on 4 L when the EMS arrived. Ordered patient continues to smoke but less significantly during the last couple days due to shortness of breath. No complaints of pruritus. No nausea vomiting abdominal pain or diarrhea. No recent illnesses. No leg swelling. No sick contacts. Chest x-ray showed no acute cardiopulmonary process. EKG showed sinus tachycardia. Laboratory data showed WBC 6.0 hemoglobin 15.6 and platelets 249 D-dimer is not elevated to 0.48 Sodium 136 potassium 4.0 chloride 100 bicarb is 32 BUN 7 creatinine 0.54 and blood sugar is 132 and magnesium 2.0 alk phos 130 troponin x1 negative and COVID-19 PCR not detected. Influenza A B and RSV negative. 09/03 patient seen and examined. Still states that she is shortness of breath on slight exertion. Currently on 4 L of oxygen. Complaining of cough 09/04. Patient seen and examined. States shortness of breath is improving. Continues to be on 3 L of oxygen. Denies any lightheadedness or dizziness REVIEW OF SYSTEMS: CONSTITUTIONAL: No fever, no malaise,. CARDIOVASCULAR: No chest pain, no palpitations, no syncope. PULMONARY: As mentioned in HPI GASTROINTESTINAL: No diarrhea, no nausea, no vomiting, no abdominal pain. NEUROLOGICAL: No headaches, no weakness, PHYSICAL EXAMINATION: GENERAL: The patient is alert and oriented x3, not in any acute distress. Well developed, well nourished. HEENT: Pupils are round and equally reacting to light. EOMI. No scleral icterus. No conjunctival pallor. Normocephalic, atraumatic. No pharyngeal erythema. No thyromegaly. CARDIOVASCULAR: S1 and S2 present. No murmurs, rubs, or gallops. PULMONARY: Coarse breath sounds bilaterally, expiratory wheeze audible ABDOMEN: Soft, nontender, nondistended, normoactive bowel sounds. No palpable organomegaly. MUSCULOSKELETAL: No joint swelling or deformity. EXTREMITIES: No cyanosis, clubbing, or pedal edema. NEUROLOGICAL: Gross neurological examination did not reveal any focal deficits. SKIN: No rashes. Assessment and plan Worsening shortness of breath secondary to acute COPD exacerbation Acute on chronic hypoxic respiratory failure on admission. Patient is on 4 L oxygen via nasal cannula at home Currently everyday smoker Anxiety DVT prophylaxis with heparin subcu Plan; Monitor vital signs Monitor CBC Monitor CMP Continue telemetry monitoring Continue breathing treatments IV Solu-Medrol changed to oral prednisone Patient counseled in detail regarding smoking cessation Follow-up on pulmonary recommendations Objective - Vital Signs Vital signs: Vital Signs Temp 97.8 F 09/04/22 06:58 Pulse 104 H 09/04/22 09:10 Resp 16 09/04/22 06:58 BP 107/70 09/04/22 06:58 Pulse Ox 91 L 09/04/22 06:58 FiO2 Intake & Output 09/03/22 09/04/22 09/04/22 18:59 06:59 18:59 Other: Voiding Method Toilet Toilet # Voids 3 2 - Labs CBC & Chem 7: 09/04/22 06:39 09/04/22 06:39 Labs: Abnormal Lab Results - Last 24 Hours (Table) 09/03/22 09/03/22 Range/Units 06:08 06:08 Hgb 16.1 H (12.0-15.0) g/dL Hct 51.0 H (37.2-46.3) % MCV 98.8 H (80.0-97.0) fL MCHC 31.6 L (32.0-37.0) g/dL Immature Gran # 0.05 H (0.00-0.04) X 10*3/uL Eosinophils # 0 L (0.04-0.35) X 10*3/uL Carbon Dioxide 33.7 H (20.0-27.5) mmol/L Glucose 153 H (70-110) mg/dL
--- NOTE | 2022-09-04 13:40 | P.PN ---
Subjective Progress Note Date: 09/04/22 This is a pleasant 71-year-old female patient with a known history of chronic and ongoing tobacco dependence of greater than 50 years, oxygen dependent severe Gold stage III/for chronic obstructive pulmonary disease. She follows with Dr. Toussaint in our office. She is maintained on Advair, albuterol, DuoNeb inhalations. She was brought into the emergency room yesterday by EMS after worsening shortness of breath and O2 saturation 83% on her home oxygen of 4 L. She had been having shortness of breath for 2 days prior. No fever chills. No cough or congestion. No hemoptysis. Chest x-ray revealed chronic changes without acute pulmonary process. Evidence of COPD. White count 6.0. Hemoglobin 15.6. D-dimer 0.48. Sodium 136. Potassium 4.0. Bicarb 32. BUN 7. Creatinine 0.54. Glucose 132. Influenza screen negative. RSV screen negative. COVID-19 screen negative. She is seen today in consultation on the regular medical floor. Currently sitting up in bed. Awake and alert in no acute distress. She is dyspneic with exertion. Dyspneic with minimal conversation. Maintaining O2 saturations in the 90s on 4 L/m per nasal cannula. She's been initiated on DuoNeb inhalations, Pulmicort and performance inhalations, IV Solu-Medrol. NicoDerm patch is in place. The patient is seen today 09/04/2022 in follow-up on the regular medical floor. She is currently sitting up at the bedside. Awake and alert in no acute distress. Breathing easier today compared to yesterday. Not quite back to her baseline. She is maintaining O2 saturations in the 90s on 3 L/m per nasal cannula. She does have home oxygen. She is currently on Pulmicort and Perforomist inhalations, IV Solu-Medrol, DuoNeb inhalations. NicoDerm patch in place. Heparin for DVT prophylaxis. White count 12.0. Hemoglobin 15.6. Platelets 308. Sodium 140. Potassium 4.9. Bicarb 34. BUN 20. Creatinine 0.8. AST 43. ALT 58. Objective - Vital Signs Vital signs: Vital Signs Temp 97.8 F 09/04/22 06:58 Pulse 98 09/04/22 12:58 Resp 16 09/04/22 06:58 BP 107/70 04/14/23 06:58 Pulse Ox 91 L 09/04/22 06:58 FiO2 Intake & Output 09/03/22 09/04/22 09/04/22 18:59 06:59 18:59 Other: Voiding Method Toilet Toilet # Voids 3 2 - Exam GENERAL EXAM: Alert, 71-year-old female, on 3 L nasal cannula, fairly comfortable in no apparent distress. HEAD: Normocephalic. EYES: Normal reaction of pupils, equal size. NOSE: Clear with pink turbinates. THROAT: No erythema or exudates. NECK: No masses, no JVD. CHEST: No chest wall deformity. LUNGS: Equal air entry with bilateral end expiratory wheeze, diminished. CVS: S1 and S2 normal with no audible murmur, regular rhythm. ABDOMEN: No hepatosplenomegaly, normal bowel sounds, no guarding or rigidity. SPINE: No scoliosis or deformity SKIN: No rashes CENTRAL NERVOUS SYSTEM: No focal deficits, tone is normal in all 4 extremities. EXTREMITIES: There is no peripheral edema. No clubbing, no cyanosis. Peripheral pulses are intact. - Labs CBC & Chem 7: 09/04/22 06:39 09/04/22 06:39 Labs: Abnormal Lab Results - Last 24 Hours (Table) 09/04/22 09/04/22 Range/Units 06:39 06:39 WBC 12.08 H (4.50-10.00) X 10*3/uL Hgb 15.6 H (12.0-15.0) g/dL Hct 48.9 H (37.2-46.3) % MCV 98.4 H (80.0-97.0) fL MCHC 31.9 L (32.0-37.0) g/dL Immature Gran # 0.08 H (0.00-0.04) X 10*3/uL Neutrophils # 10.33 H (1.80-7.70) X 10*3/uL Eosinophils # 0 L (0.04-0.35) X 10*3/uL Carbon Dioxide 34.0 H (20.0-27.5) mmol/L Anion Gap 8.00 L (10.00-18.00) mmol/L BUN/Creatinine Ratio 25.13 H (12.00-20.00) Ratio Glucose 152 H (70-110) mg/dL Total Bilirubin 0.20 L (0.30-1.20) mg/dL AST 43 H (13-35) U/L ALT 58 H (8-44) U/L Alkaline Phosphatase 127 H (41-126) U/L Assessment and Plan Assessment: Acute exacerbation of severe oxygen dependent chronic obstructive pulmonary disease. FEV1 value 32% of predicted Chronic and ongoing tobacco dependence of greater than 50 years Plan: The patient was seen and evaluated Labs and medications reviewed Discontinue Pulmicort and Perforomist Initiate Symbicort Discontinue IV Solu-Medrol Initiated prednisone taper Again educated regarding the importance of complete smoking cessation NicoDerm patch in place Probable discharge in the a.m. We'll continue to follow I have personally seen and examined the patient, performed the documentation and the assessment and plan as written. Number of minutes spent on the visit: 10.
[2022-09-04] MEDS: ALPRAZolam 0.25 MG TAB PO PRN (23:43)
[2022-09-05] MEDS: predniSONE 20 MG TAB PO SCH (06:58)
[2022-09-05] MEDS: HEPARIN SODIUM,PORCINE/PF 5,000 UNIT/0.5 ML SYRINGE SQ SCH ×2 (06:59→15:51)
[2022-09-05] MEDS: polyethylene glycoL 3350 17 GM POWD.PACK PO SCH (06:59)
[2022-09-05] MEDS: NICOTINE 7MG/24HR PATCH TRANSDERM SCH (07:00)
[2022-09-05] MEDS: IPRATROPIUM-ALBUTEROL 3 ML NEB INHALATION SCH ×3 (07:54→15:56)
[2022-09-05] MEDS: SYMBICORT 160-4.5 MCG INHALER INHALATION SCH (07:54)
[2022-09-05 08:28] VITALS: BP 118/74; RESP 18; TEMP 98.1
[2022-09-05] MEDS: ALPRAZolam 0.25 MG TAB PO PRN (09:41)
--- NOTE | 2022-09-05 12:11 | P.PN ---
Subjective Progress Note Date: 09/05/22 This is a pleasant 71-year-old female patient with a known history of chronic and ongoing tobacco dependence of greater than 50 years, oxygen dependent severe Gold stage III/for chronic obstructive pulmonary disease. She follows with Dr. Toussaint in our office. She is maintained on Advair, albuterol, DuoNeb inhalations. She was brought into the emergency room yesterday by EMS after worsening shortness of breath and O2 saturation 83% on her home oxygen of 4 L. She had been having shortness of breath for 2 days prior. No fever chills. No cough or congestion. No hemoptysis. Chest x-ray revealed chronic changes without acute pulmonary process. Evidence of COPD. White count 6.0. Hemoglobin 15.6. D-dimer 0.48. Sodium 136. Potassium 4.0. Bicarb 32. BUN 7. Creatinine 0.54. Glucose 132. Influenza screen negative. RSV screen negative. COVID-19 screen negative. She is seen today in consultation on the regular medical floor. Currently sitting up in bed. Awake and alert in no acute distress. She is dyspneic with exertion. Dyspneic with minimal conversation. Maintaining O2 saturations in the 90s on 4 L/m per nasal cannula. She's been initiated on DuoNeb inhalations, Pulmicort and performance inhalations, IV Solu-Medrol. NicoDerm patch is in place. The patient is seen today 09/04/2022 in follow-up on the regular medical floor. She is currently sitting up at the bedside. Awake and alert in no acute distress. Breathing easier today compared to yesterday. Not quite back to her baseline. She is maintaining O2 saturations in the 90s on 3 L/m per nasal cannula. She does have home oxygen. She is currently on Pulmicort and Perforomist inhalations, IV Solu-Medrol, DuoNeb inhalations. NicoDerm patch in place. Heparin for DVT prophylaxis. White count 12.0. Hemoglobin 15.6. Platelets 308. Sodium 140. Potassium 4.9. Bicarb 34. BUN 20. Creatinine 0.8. AST 43. ALT 58. The patient is seen today 09/05/2022 in follow-up on the regular medical floor. She is currently sitting up at the bedside. Awake and alert in no acute distress. No worsening shortness of breath, cough or congestion. No fever or chills. No hemoptysis. Maintaining good O2 saturations in the 90s on 3 L/m per nasal cannula. She remains afebrile. Hemodynamically stable. No new labs today. She is continued on DuoNeb inhalations, Symbicort, prednisone taper. NicoDerm patch in place. Heparin for DVT prophylaxis. Objective - Vital Signs Vital signs: Vital Signs Temp 98.1 F 09/05/22 07:21 Pulse 108 H 09/05/22 08:09 Resp 18 09/05/22 07:21 BP 118/74 09/05/22 07:21 Pulse Ox 93 L 09/05/22 07:54 FiO2 Intake & Output 09/04/22 09/05/22 09/05/22 18:59 06:59 18:59 Intake Total 1200 Output Total 400 Balance 800 Intake: Oral 1200 Output: Urine 400 Other: Voiding Method Toilet Toilet # Voids 3 - Exam GENERAL EXAM: Alert, 71-year-old female, sitting up at the bedside, on 3 L nasal cannula, comfortable in no apparent distress. HEAD: Normocephalic. EYES: Normal reaction of pupils, equal size. NOSE: Clear with pink turbinates. THROAT: No erythema or exudates. NECK: No masses, no JVD. CHEST: No chest wall deformity. LUNGS: Equal air entry with bilateral end expiratory wheeze, diminished. CVS: S1 and S2 normal with no audible murmur, regular rhythm. ABDOMEN: No hepatosplenomegaly, normal bowel sounds, no guarding or rigidity. SPINE: No scoliosis or deformity SKIN: No rashes CENTRAL NERVOUS SYSTEM: No focal deficits, tone is normal in all 4 extremities. EXTREMITIES: There is no peripheral edema. No clubbing, no cyanosis. Peripheral pulses are intact. - Labs CBC & Chem 7: 09/04/22 06:39 09/04/22 06:39 Assessment and Plan Assessment: Acute exacerbation of severe oxygen dependent chronic obstructive pulmonary disease. FEV1 value 32% of predicted Chronic and ongoing tobacco dependence of greater than 50 years Plan: The patient was seen and evaluated Medications reviewed Cleared for discharge from the pulmonary standpoint Complete a prednisone taper starting at 30 mg daily for 4 days Continue her home pulmonary medications Again educated regarding the importance of complete smoking cessation NicoDerm patch in place Follow-up in our office in 1 week I have personally seen and examined the patient, performed the documentation and the assessment and plan as written. Number of minutes spent on the visit: 10.
[2022-09-05 13:23] LABS: Basophils # (A) 0.05 X 10*3/uL (0.00-0.10); Basophils % (A) 0.6 %; Eosinophils # (A) 0.01 X 10*3/uL (0.04-0.35); Eosinophils % (A) 0.1 %; HCT 53.3 % (37.2-46.3); HGB 16.5 g/dL (12.0-15.0); Lymphocytes % (A) 22.7 %; MCH 30.8 pg (27.0-32.0); MCV 99.4 fL (80.0-97.0); Mean Platelet Volume 9.5 fL (9.5-12.2); Monocytes # (A) 0.88 X 10*3/uL (0.20-1.00); Monocytes % (A) 11.1 %; NRBC Per 100 WBC 0 /100 WBCS (0.0-0.0); Neutrophils # (A) 5.11 X 10*3/uL (1.80-7.70); Neutrophils % (A) 64.5 %; Platelet Count 342 X 10*3/uL (140-440); RBC 5.36 X 10*6/uL (4.10-5.20); RDW 13.2 % (11.5-14.5); WBC 7.93 X 10*3/uL (4.50-10.00)
[2022-09-05 13:33] VITALS: PULSE 96
[2022-09-05 13:48] LABS: African American GFR (CKD) 101.7 (60.0-200.0); Albumin 4.2 g/dL (3.8-4.9); Albumin/Globulin Ratio 1.75 (1.60-3.17); Anion Gap 9.5 mmol/L (10.00-18.00); BUN/Creat Ratio 25.29 Ratio (12.00-20.00); Blood Urea Nitrogen 17.7 mg/dL (9.0-27.0); Calcium 9.6 mg/dL (8.7-10.3); Carbon Dioxide 37.5 mmol/L (20.0-27.5); Globulin 2.4 g/dL (1.6-3.3); Non-African American GFR(CKD) 87.8 (60.0-200.0); Potassium 4.5 mmol/L (3.5-5.5); Total Bilirubin 0.4 mg/dL (0.30-1.20); Total Protein 6.6 g/dL (6.2-8.2)
--- NOTE | 2022-09-05 14:29 | P.DS ---
Providers Date of admission: 09/02/22 11:26 Expected date of discharge: 09/05/22 Attending physician: Layne Cutler MD Consults: 09/03/22 02:25 Consult Physician Routine Consulting Provider: Jes Toussaint Consult Reason/Comments: COPD Do you want consulting provider notified?: Yes, Notify in am Primary care physician: Stated None Hospital Course: Discharge diagnoses; Worsening shortness of breath secondary to acute COPD exacerbation Acute on chronic hypoxic respiratory failure on admission. Patient is on 4 L oxygen via nasal cannula at home Currently everyday smoker Anxiety Hospital course; Patient is a 71-year-old female with known history of COPD on oxygen at 4 L via nasal cannula and currently everyday smoker presents to ER with complaints of shortness of breath for the past 2 days. Patient pressure-like chest tightness and unable to take deep breath. Unable to bring up any sputum. Intermittent cough. EMS was called due to worsening shortness of breath. Patient was found to be hypoxic with pulse ox 83% on 4 L when the EMS arrived. Ordered patient continues to smoke but less significantly during the last couple days due to shortness of breath. No complaints of pruritus. No nausea vomiting abdominal pain or diarrhea. No recent illnesses. No leg swelling. No sick contacts. Chest x-ray showed no acute cardiopulmonary process. EKG showed sinus tachycardia. Laboratory data showed WBC 6.0 hemoglobin 15.6 and platelets 249 D-dimer is not elevated to 0.48 Sodium 136 potassium 4.0 chloride 100 bicarb is 32 BUN 7 creatinine 0.54 and blood sugar is 132 and magnesium 2.0 alk phos 130 troponin x1 negative and COVID-19 PCR not detected. Influenza A B and RSV negative. 09/03 patient seen and examined. Still states that she is shortness of breath on slight exertion. Currently on 4 L of oxygen. Complaining of cough 09/04. Patient seen and examined. States shortness of breath is improving. C ontinues to be on 3 L of oxygen. Denies any lightheadedness or dizziness 09/05. Patient seen and examined. Patient doing much better, being discharged on tapered dose of prednisone Outpatient follow-up with pulmonology PHYSICAL EXAMINATION: GENERAL: The patient is alert and oriented x3, not in any acute distress. Well developed, well nourished. HEENT: Pupils are round and equally reacting to light. EOMI. No scleral icterus. No conjunctival pallor. Normocephalic, atraumatic. No pharyngeal erythema. No thyromegaly. CARDIOVASCULAR: S1 and S2 present. No murmurs, rubs, or gallops. PULMONARY: Chest is clear to auscultation, no wheezing or crackles. ABDOMEN: Soft, nontender, nondistended, normoactive bowel sounds. No palpable organomegaly. MUSCULOSKELETAL: No joint swelling or deformity. EXTREMITIES: No cyanosis, clubbing, or pedal edema. NEUROLOGICAL: Gross neurological examination did not reveal any focal deficits. SKIN: No rashes. Patient Condition at Discharge: Good Plan - Discharge Summary Discharge Rx Participant: No New Discharge Prescriptions: New predniSONE 10 mg PO DAILY #20 tab Nicotine 7Mg/24Hr Patch [Habitrol] 1 patch TRANSDERM DAILY #21 patch Continue Albuterol Sulfate [Ventolin HFA] 2 puff INHALATION RT-QID PRN PRN Reason: Shortness Of Breath Ipratropium-Albuterol Nebulize [Duoneb 0.5 mg-3 mg/3 ml Soln] 3 ml INHALATION RT-QID Fluticasone Propion/Salmeterol [Advair 250-50 Diskus] 1 puff INHALATION RT- BID Ibuprofen/Diphenhydramine HCl [Advil Pm Liqui-Gels] 1 - 2 cap PO HS Discharge Medication List Albuterol Sulfate [Ventolin HFA] 2 puff INHALATION RT-QID PRN 09/02/22 [History] Fluticasone Propion/Salmeterol [Advair 250-50 Diskus] 1 puff INHALATION RT-BID 09/02/22 [History] Ibuprofen/Diphenhydramine HCl [Advil Pm Liqui-Gels] 1 - 2 cap PO HS 09/02/22 [H istory] Ipratropium-Albuterol Nebulize [Duoneb 0.5 mg-3 mg/3 ml Soln] 3 ml INHALATION RT-QID 09/02/22 [History] Nicotine 7Mg/24Hr Patch [Habitrol] 1 patch TRANSDERM DAILY #21 patch 09/05/22 [Rx] predniSONE 10 mg PO DAILY #20 tab 09/05/22 [Rx] Follow up Appointment(s)/Referral(s): Reny Bill PAC [REFERRING] - 1-2 Days Rene Bryant DO [Doctor of Osteopathic Medicine] - 1 Week Discharge Disposition: HOME SELF-CARE
[2022-09-06] MEDS ORDERED: predniSONE 10 MG TAB PO SCH (09:00)
== END 2022-09-05 15:55 | disposition home health service (06) ==
LOC: EC 08:03 → 4SSUR 11:26 → INTOOBSV 11:26 → 4SSUR 15:13
PROVIDERS: ADMIT Internal Medicine; ATTEND Internal Medicine
DX: J44.1 Chronic obstructive pulmonary disease with (acute) exacerbation (principal); J96.21 Acute and chronic respiratory failure with hypoxia; F12.90 Cannabis use, unspecified, uncomplicated; F17.210 Nicotine dependence, cigarettes, uncomplicated; F41.9 Anxiety disorder, unspecified; R00.0 Tachycardia, unspecified; Z99.81 Dependence on supplemental oxygen; Z79.899 Other long term (current) drug therapy; Z20.822 Contact with and (suspected) exposure to COVID-19
CPT/HCPCS: 96372 ×3; 96374; 96376 ×2; 99285; 36415; 94640 ×8; 94760 ×2; 93005; 85379; 80053 ×3; 80048; 84443; 83605; 83735; 84484; 85025 ×4; 85610; 85730; 87636; 71046; G0378 ×4; S4990 ×4; J2930 ×3; J7512 ×2; J1644 ×3